=== PATIENT | female | born 1935 | race Caucasian/White ===

== ENCOUNTER 2019-11-05 13:10 | Inpatient (IN) | payer MEDICARE, SELFPAY ==
[2019-11-05] VITALS (14 sets, daily range): BP systolic 160–225; BP diastolic 97–127; PULSE 72–94; RESP 19–32; TEMP 36.3–36.8; O2SAT 88–99; BMI 13.6
--- NOTE | 2019-11-05 13:23 | DI.RAD.S_ITS ---
PROCEDURE: XR CHEST 1V INDICATIONS: suspected sepsis TECHNIQUE: One view of the chest was acquired. COMPARISON: None. FINDINGS: Surgical changes and devices: Surgical clips noted in the right axilla. Lungs and pleura: Lungs are clear. No pleural effusions or pneumothorax. Lungs are hyperinflated suggesting COPD. Mediastinum: Mediastinal contours appear normal. Heart size is normal. Bones and chest wall: No suspicious bony lesions. Overlying soft tissues appear unremarkable. IMPRESSION: No acute cardiopulmonary disease process. Dictated by: Estrella Cueva MD, PhD on 11/05/2019 at 13:03 Approved by: Estrella Cueva MD, PhD on 11/05/2019 at 13:04
[2019-11-05] MEDS: ALBUTEROL/IPRATROPIUM 3 ML AMPUL INH ×2 (13:24→17:49)
--- NOTE | 2019-11-05 13:34 | ED_ITS ---
HPI - SOB/Dyspnea General Chief Complaint: Shortness of Breath/Dyspnea Stated Complaint: Respiratory Distress Time Seen by Provider: 11/05/19 13:27 Source: EMS Mode of arrival: EMS History of Present Illness HPI Narrative: The patient is an 84-year-old female who was sent into the emergency department by ambulance by her primary care physician Dr. Hong.Dr. Hong called the emergency department to inform the emergency department that t he patient is DNI-DNR simple care comfort measures only no intubation. Place her on oxygen and breathing treatments. The patient has been living at home with help and the family can no longer take care of her. She has a an extensive history being a heavy smoker most of her life and has significant COPD. He plans to admit the patient after being evaluated in the emergency department for possible placement in a alf. The patient complains of being short of breath with a cough productive of a clear sputum. She denied any hemoptysis chest pain palpitations or dizziness. She denies any abdominal pain nausea vomiting diarrhea change in bowel habits melena or hematochezia. She has had no urinary symptoms. She denies a headache nasal drainage sinus congestion or sore throat. She denies any fever chills or sweats. She admits to continuing to smoke cigarettes. She admits to a history of asthma but denies a history of COPD congestive heart failure myocardial infarction diabetes or hypertension. Related Data Home Medications Medication Instructions Recorded Confirmed quetiapine [Seroquel] 12.5 mg PO QPM 11/05/19 11/05/19 Allergies Allergy/AdvReac Type Severity Reaction Status Date / Time amlodipine [From [facility]] Allergy Unknown Verified 11/05/19 14:40 Review of Systems Review of Systems Narrative: The patient's review of systems were negative except for those mentioned in the history of present illness. Patient History Social History household members: spouse Smoking Status: Current some day smoker alcohol intake: current Exam Narrative Exam Narrative: PHYSICAL EXAM: CONSTITUTIONAL: Awake, appears alert and oriented to place time. Cooperative in mild to moderate respiratory distress tachypneic.. The patient appears to be chronically ill cachectic and emaciated. HEAD: AT/NC EENT: PERRL, FROM of eyes, no discharge,. No epistaxis or nasal drainage Oral mucosa is moist and pink, posterior pharynx is without erythema or exudate. NECK: Supple, no obvious JVD, Trachea is midline without stridor, no palpable LN . SPINE: No gross deformity, no palpable tenderness of the cervical, thoracic, lumbar or sacral spine. No CVA tenderness. THORAX: No deformity, retractions, chest wall tenderness, increased AP diameter. LUNGS: Markedly decreased breath sounds bilaterally. She has diffuse expiratory wheezes posteriorly with inspiratory crackles HEART: Normal heart tones, regular rhythm and rate without murmur. ABDOMEN: Soft, non-tender, normal bowel sounds without guarding, rebound, rigidity or palpable mass EXTREMITIES: No edema, cyanosis, deformity or tenderness. Diffuse atrophy of the muscles. SKIN: No rash, bruising, petechiae or purpura. NEURO: Awake, alert, oriented, conversive, cranial nerves II-XII are symmetrical and normal, moves all 4 extremities Initial Vital Signs Initial Vital Signs: Vital Signs Temperature 98.1 F 11/05/19 13:23 Pulse Rate 94 H 11/05/19 13:23 Respiratory Rate 29 H 11/05/19 13:23 Blood Pressure 192/127 H 11/05/19 13:23 Pulse Oximetry 96 11/05/19 13:23 Course Course Course Narrative: 1445 I will discuss the patient with Dr. Garcia, her chest x- ray revealed no acute cardiopulmonary pathology. She has no pneumonia. It appears clinically the patient is having an acute exacerbation of her COPD. 1455 the patient was admitted to the hospital before the influenza swabs resulted. Orders Ordered: ED Orders 11/05/19 13:23 XR chest 1V Stat EKG-12 Lead Stat RT Consult Eval and Treat Now 11/05/19 13:31 Complete Blood Count AUTO DIFF Stat Comprehensive Metabolic Panel Stat Lactate (Lactic Acid) Stat Lipase Stat Partial Thromboplastin Time Stat Procalcitonin Stat Prothrombin Time INR Stat 11/05/19 13:38 Venous Blood Gas Stat 11/05/19 15:47 Blood Culture Stat Acetaminophen (Tylenol) 650 mg PO Q6HR PRN PRN Reason: Fever/Mild Pain (1-3) Albuterol (Ventolin) 2.5 mg INH [id number] PRN PRN Reason: Shortness Of Breath Albuterol (Ventolin) 2.5 mg INH [id number] YVETTE Albuterol/Ipratropium (Duoneb) 3 ml INH [id number] [facility] Last Admin: 11/05/19 17:49 Dose: 3 ml Documented by: HERBERT Sodium Chloride (Normal Saline 0.9%) 1,000 mls @ 75 mls/hr IV CONT YVETTE Last Admin: 11/05/19 18:13 Dose: 75 mls/hr Documented by: JOYCE Methylprednisolone (Solu-Medrol) 40 mg IV Q6HR [facility] Last Admin: 11/05/19 18:12 Dose: 40 mg Documented by: JOYCE Naloxone HCl (Narcan) 0.2 mg IV Q2MIN PRN PRN Reason: Opiate Reversal Quetiapine Fumarate (Seroquel) 12.5 mg PO QPM [facility] Discontinued Medications Albuterol/Ipratropium (Duoneb) 3 ml INH NOW ONE Stop: 11/05/19 13:24 Last Admin: 11/05/19 13:24 Dose: 3 ml Documented by: HERBERT Sodium Chloride (Normal Saline 0.9%) 1,000 mls @ 1,000 mls/hr IV BOLUS ONE Stop: 11/05/19 14:22 Last Admin: 11/05/19 13:54 Dose: 1,000 mls/hr Documented by: JESSICA Lisinopril (Zestril) 20 mg PO NOW ONE Stop: 11/05/19 17:49 Last Admin: 11/05/19 18:12 Dose: 20 mg Documented by: JOYCE Vital Signs Vital signs: Vital Signs - 8 hr 11/05/19 13:23 11/05/19 13:24 11/05/19 13:55 Temperature 98.1 F Pulse Rate 94 H 91 H 86 Respiratory Rate 29 H 24 30 H Blood Pressure 192/127 H Blood Pressure [Left Arm] 204/98 H Pulse Oximetry 96 98 98 11/05/19 14:30 11/05/19 15:00 Temperature Pulse Rate 87 88 Respiratory Rate 29 H 30 H Blood Pressure Blood Pressure [Left Arm] 200/97 H 204/98 H Pulse Oximetry 91 95 MDM - SOB/Dyspnea Medical Records Attestation: I reviewed the patient's medical records. Lab Data Attestation: I reviewed the patient's lab results. Result diagrams: 11/05/19 13:31 11/05/19 13:31 Labs: Lab Results 11/05/19 11/05/19 11/05/19 Range/Units 13:31 13:31 13:31 WBC 7.3 (4.5-11.0) X10^3/uL RBC 4.87 (4.0-5.2) X10^6/uL Hgb 15.3 (12.0-16.0) g/dL Hct 45.5 (36-46) % MCV 93.6 (80-100) fL MCH 31.5 (26-34) PG MCHC 33.7 (30-36) % RDW 13.7 (11.6-14.8) % Plt Count 226 (150-400) X10^3/uL Neut % (Auto) 84.0 H (50-75) % Lymph % (Auto) 8.7 L (25-40) % [place] % (Auto) 6.3 (3-14) % Eos % (Auto) 0.2 L (2-4) % Baso % (Auto) 0.8 (0-2) % Neut # (Auto) 6100 (9227-3264) /uL Lymph # (Auto) 600 L (8921-7706) /uL [place] # (Auto) 500 (0-900) /uL Eos # (Auto) 0 (0-450) /uL Baso # (Auto) 100 (0-100) /uL PT 10.6 (10.1-12.7) SECONDS INR 0.9 (0.9-1.3) APTT 26 L (26.4-36.2) SECONDS Sodium (137-145) mmol/L Potassium (3.4-5.1) mmol/L Chloride (98-107) mmol/L Carbon Dioxide (22-32) mmol/L BUN (7-17) mg/dL Creatinine (0.52-1.04) mg/dL Estimated GFR (>60) mL/min BUN/Creatinine Ratio (6-22) Glucose (80-110) mg/dL Lactate (0.7-2.1) mmol/L Calcium (8.4-10.2) mg/dL Total Bilirubin (0.2-1.3) mg/dL AST (14-36) IU/L ALT (<35) IU/L Alkaline Phosphatase (38-126) U/L Total Protein (6.3-8.2) g/dL Albumin (3.5-5.0) g/dL Globulin (1.7-4.1) g/dL Albumin/Globulin Ratio (1.0-2.8) Lipase (23-300) U/L Procalcitonin < 0.05 (<0.5) ng/mL 11/05/19 11/05/19 Range/Units 13:31 13:31 WBC (4.5-11.0) X10^3/uL RBC (4.0-5.2) X10^6/uL Hgb (12.0-16.0) g/dL Hct (36-46) % MCV (80-100) fL MCH (26-34) PG MCHC (30-36) % RDW (11.6-14.8) % Plt Count (150-400) X10^3/uL Neut % (Auto) (50-75) % Lymph % (Auto) (25-40) % [place] % (Auto) (3-14) % Eos % (Auto) (2-4) % Baso % (Auto) (0-2) % Neut # (Auto) (0742-6926) /uL Lymph # (Auto) (3477-4104) /uL [place] # (Auto) (0-900) /uL Eos # (Auto) (0-450) /uL Baso # (Auto) (0-100) /uL PT (10.1-12.7) SECONDS INR (0.9-1.3) APTT (26.4-36.2) SECONDS Sodium 138 (137-145) mmol/L Potassium 3.1 L (3.4-5.1) mmol/L Chloride 95 L (98-107) mmol/L Carbon Dioxide 36 H (22-32) mmol/L BUN 21 H (7-17) mg/dL Creatinine 0.75 (0.52-1.04) mg/dL Estimated GFR > 60.0 (>60) mL/min BUN/Creatinine Ratio 28.0 H (6-22) Glucose 148 H (80-110) mg/dL Lactate 1.6 (0.7-2.1) mmol/L Calcium 9.7 (8.4-10.2) mg/dL Total Bilirubin 0.6 (0.2-1.3) mg/dL AST 35 (14-36) IU/L ALT 17 (<35) IU/L Alkaline Phosphatase 95 (38-126) U/L Total Protein 7.3 (6.3-8.2) g/dL Albumin 4.1 (3.5-5.0) g/dL Globulin 3.2 (1.7-4.1) g/dL Albumin/Globulin Ratio 1.3 (1.0-2.8) Lipase 241 (23-300) U/L Procalcitonin (<0.5) ng/mL ECG Data Attestation: I personally reviewed and interpreted this ECG as follows: Interpretation: The patient's EKG obtained on November 04 at 13:3 6:18 a.m. reveals a sinus rhythm with a ventricular rate of 95. Intervals appear to be normal except the QTC is slightly prolonged at 477 milliseconds. The patient has left axis deviation. The patient has a QS wave in lead II III and AVF suggestive of an arm inferior wall VT age indeterminate. The patient has a noisy artifactual baseline. Patient has T-wave inversions in V1 V2 suggesting and a septal ischemia. The rest of her ST segments and T-waves are nonspecific. Discharge Plan Departure Patient Disposition: Admitted As Inpatient Clinical Impression: Shortness of Breath, Cachexia, COPD exacerbation Hypertension Qualifiers: Hypertension type: essential hypertension Qualified Code(s): I10 - Essential (primary) hypertension Discharge Date/Time: 11/05/19 16:31 Admit Date/Time: 11/05/19 15:01 Admit Provider: Nacho Hong
[2019-11-05 13:51] LABS: Add Manual Diff / Slide Review NO; Basophils Absolute Auto 100 /uL (0-100); Basophils Percent Auto 0.8 % (0-2); Eosinophils Absolute Auto 0 /uL (0-450); Eosinophils Percent Auto 0.2 % (2-4); Hematocrit 45.5 % (36-46); Hemoglobin 15.3 g/dL (12.0-16.0); Lymphocytes Absolute Auto 600 /uL (1100-4500); Lymphocytes Percent Auto 8.7 % (25-40); Mean Corpuscular HGB Conc 33.7 % (30-36); Mean Corpuscular Hemoglobin 31.5 PG (26-34); Mean Corpuscular Volume 93.6 fL (80-100); Monocytes Absolute Auto 500 /uL (0-900); Monocytes Percent Auto 6.3 % (3-14); Neutrophils Absolute Auto 6100 /uL (1500-7000); Platelet Count 226 X10^3/uL (150-400); Red Blood Cell Count 4.87 X10^6/uL (4.0-5.2); Red Cell Distribution Width 13.7 % (11.6-14.8); White Blood Cell Count 7.3 X10^3/uL (4.5-11.0)
[2019-11-05] MEDS: SODIUM CHLORIDE 0.9% 1,000 ML 1000 ML IV (13:54)
[2019-11-05 14:00] LABS: INR 0.9 (0.9-1.3); Prothrombin Time 10.6 SECONDS (10.1-12.7)
[2019-11-05 14:02] LABS: PTT Partial Thromboplastin Tim 26 SECONDS (26.4-36.2)
[2019-11-05 14:05] LABS: Lactate (Lactic Acid) 1.6 mmol/L (0.7-2.1)
[2019-11-05 14:06] LABS: Alanine Aminotransferase 17 IU/L (<35); Albumin 4.1 g/dL (3.5-5.0); Albumin Globulin Ratio 1.3 (1.0-2.8); Alkaline Phosphatase 95 U/L (38-126); Aspartate Aminotransferase 35 IU/L (14-36); Bilirubin Total 0.6 mg/dL (0.2-1.3); Blood Urea Nitrogen 21 mg/dL (7-17); Calcium 9.7 mg/dL (8.4-10.2); Carbon Dioxide 36 mmol/L (22-32); Chloride 95 mmol/L (98-107); Estimated Glomerular Filt Rate > 60.0 mL/min (>60); Globulin 3.2 g/dL (1.7-4.1); Glucose 148 mg/dL (80-110); HEMOLYSIS 18 (0-50); Lipase 241 U/L (23-300); Potassium 3.1 mmol/L (3.4-5.1); Sodium 138 mmol/L (137-145); Total Protein 7.3 g/dL (6.3-8.2)
[2019-11-05 14:23] LABS: Procalcitonin < 0.05 ng/mL (<0.5)
--- NOTE | 2019-11-05 15:43 | PC.NURSE ---
Pt attempting to climb out of bed, has d/c'd IV, removed cardiac leads, SPO2 sensor, nasal cannula. Pt assisted back into bed by RNs, O2 applied, clean gown, blood washed from hands. PT education regarding nurse call light provided.
[2019-11-05 16:13] LABS: Bacteria Urine None Seen; WBC Urine None Seen (0-5/HPF)
[2019-11-05 16:25] LABS: Culture Indicated Urine Cult Not Indicated; RBC Urine 0-1/HPF (0-5/HPF)
--- NOTE | 2019-11-05 17:20 | PC.NURSE ---
1650 - Pt to room from ER. Able to stand-pivot to bed. Unsteady gait. Oriented to room and routine. Educated to safety and call light use. One person assist to BSC. Bed alarm on. Pt is a poor historian and unable to provide information leading up to admission. No family present.
[2019-11-05] MEDS: lisinopriL 20 MG TABLET PO (18:12)
[2019-11-05] MEDS: SODIUM CHLORIDE 0.9% 1,000 ML 75 ML IV (18:13)
[2019-11-05 18:45] LABS: Adenovirus Not Detected (Not Detect); Bordetella pertussis Not Detected (Not Detect); Chlamydophila pneumoniae Not Detected (Not Detect); Coronavirus 229E Not Detected (Not Detect); Coronavirus HKU1 Not Detected (Not Detect); Coronavirus NL 63 Not Detected (Not Detect); Coronavirus OC43 Not Detected (Not Detect); Human Metapneumovirus Detected (Not Detect); Human Rhinovirus/Enterovirus Not Detected (Not Detect); Influenza A Not Detected (Not Detect); Influenza B Not Detected (Not Detect); Mycoplasma pneumoniae Not Detected (Not Detect); Parainfluenza Virus 1 Not Detected (Not Detect); Parainfluenza Virus 2 Not Detected (Not Detect); Parainfluenza Virus 3 Not Detected (Not Detect); Parainfluenza Virus 4 Not Detected (Not Detect); Respiratory Syncytial Virus Not Detected (Not Detect)
--- NOTE | 2019-11-05 19:01 | PC.NURSE ---
Addendum entered by Karrie Rojas R.N. 11/05/19 23:19: Phone call from pt's son, Austin, who states pt has dementia as baseline. Son was informed of pt's status as per request. Addendum entered by Karrie Rojas R.N. 11/05/19 21:50: Dr. Hong in house and informed of results of pt's respiratory panel. Also, informed MD of pt's confusion and restlessness requiring 1:1 to keep oxygen cannula in nares and iv intact. Verbal orders for lorazepam as per Dr. Hong. Original Note: Pt to room 214 from E.R. Pt is confused and requires repeated directions and instructions to leave oxygen cannula in place. 02 @ 4L per NC sats 92%. R.T. in to see patient. Dr. Hong has seen pt in room this evening shift. Pt placed on droplet precautions pending respiratory panel results. IV fluids as per emar to right ac iv site without difficulty. Bed alarm in place and frequent viewing by staff.
--- NOTE | 2019-11-05 22:18 | P.HP_ITS ---
History of Present Illness History of Present Illness Date Patient Seen: 11/05/19 Time Patient Seen: 22:18 Chief complaint: Respiratory Distress Narrative: Patient is a significantly demented 84-year-old female who has been reluctant to consider medical care over the last 2 years. The last time I saw her was approximately 2 or 3 months ago when I did a home visit and she was reluctant to leave the house. Really had a lot of paranoia around everybody trying to get her out of her house. Basically at the time her son was splitting time with her daughter in spending time with her to try to keep her in the house. The goal was to keep her there. She has been doing well. Apparently she has had a commercial real estate underwriter who had a a family member who was recently coming back from [place]. She had been tested twice for the doshi virus both of which time she was negative. Caretakers never been sick and not had any issues. Apparently Sue over the last 7 days is progressively got increasing cough. No fever. Generally increasing weakness and has had more and more difficulty breathing. Having difficulty get up and moving around. Has been had minimal p.o. intake. Has not had any fevers or chills. Son has had increasing issues with dealing with her and started to worry that she was going to have more more problems. So she was brought in today. No one else in the family has been sick although the commercial real estate underwriter is gotten sick since Sue he has gotten sick. Patient has had a longstanding history of smoking. And has had issues with COPD. Patient has had a cough but son is not sure if it has been productive. Patient otherwise is a very poor historian. She has not had any nausea or vomiting. She has not been complaining of any pain to her son. No urinary changes or bowel changes. Past medical history is significant for hypertension. Dementia. Refused all treatment. Past Surgical history is noncontributory and I am unable to obtain tonight. Social history. Lifelong smoker. Greater than 60 pack year history. . Retired. Lives alone with excellent family support. No alcohol. No recent travel Patient History Family & Social History Social History: household members spouse Prior Living Arrangements House Safety & Behavioral: Feels Safe in Current Yes Environment Been Physically Hurt or No Threatened By a Person Suicidal Ideation Description None Tobacco & Substance use: Tobacco type cigarettes Smoking Status Current some day smoker alcohol intake current alcohol intake frequency holiday/special occasion Substance Use Type does not use Meds Home Medications and Allergies Home Medications Medication Instructions Recorded Confirmed Type quetiapine [Seroquel] 12.5 mg PO QPM 11/05/19 11/05/19 History Allergies Allergy/AdvReac Type Severity Reaction Status Date / Time amlodipine [From [facility]] Allergy Unknown Verified 11/05/19 14:40 Review of Systems Review of Systems ROS: Yes All systems reviewed with the patient and are negative except as otherwise documented and unobtainable due to mental condition Exam Vital Signs (past 8 hours): - 11/05/19 14:30 11/05/19 15:00 11/05/19 15:30 Temperature Pulse Rate 87 88 87 Respiratory Rate 29 H 30 H 30 H Blood Pressure Blood Pressure [Left Arm] 200/97 H 204/98 H 225/106 H Pulse Oximetry 91 95 92 11/05/19 16:00 11/05/19 17:23 11/05/19 17:49 Temperature 97.4 F L Pulse Rate 92 H 88 86 Respiratory Rate 32 H 24 20 Blood Pressure 191/114 H Blood Pressure [Left Arm] 192/109 H Pulse Oximetry 94 93 88 L 11/05/19 18:00 11/05/19 18:12 11/05/19 19:42 Temperature 98.2 F Pulse Rate 88 72 Respiratory Rate 20 Blood Pressure 191/114 H 186/109 H Blood Pressure [Left Arm] Pulse Oximetry 92 95 Oxygen Delivery Method Nasal Cannula Oxygen Flow Rate 4 Narrative Exam Narrative: Alert elderly female thin in appearance sitting in bed comfortably coughing intermittently no acute respiratory distress. Nasal cannula in place. HEENT exam tympanic membranes are unremarkable. Conjunctivae are clear. Mucous membrane mildly dry. Neck is supple without adenopathy JVD or bruits lungs show diffuse expiratory rhonchi with no retractions. Heart is regular rate and rhythm without murmurs clicks rubs or gallops. Abdomen is scaphoid soft positive bowel sounds no pedis been megaly no masses. Extremities are thin good capillary refill. Neurologic exam is nonfocal. Skin shows no rash or bruising. Emotionally she is quite happy but confused and is not oriented to anything but herself Objective Labs Result Diagrams: 11/05/19 13:31 11/05/19 13:31 Labs: Laboratory Results - last 24 hr 11/05/19 11/05/19 11/05/19 13:31 13:31 13:31 WBC 7.3 RBC 4.87 Hgb 15.3 Hct 45.5 MCV 93.6 MCH 31.5 MCHC 33.7 RDW 13.7 Plt Count 226 Neut % (Auto) 84.0 H Lymph % (Auto) 8.7 L [place] % (Auto) 6.3 Eos % (Auto) 0.2 L Baso % (Auto) 0.8 Neut # (Auto) 6100 Lymph # (Auto) 600 L [place] # (Auto) 500 Eos # (Auto) 0 Baso # (Auto) 100 PT 10.6 INR 0.9 APTT 26 L Sodium Potassium Chloride Carbon Dioxide BUN Creatinine Estimated GFR BUN/Creatinine Ratio Glucose Lactate Calcium Total Bilirubin AST ALT Alkaline Phosphatase Total Protein Albumin Globulin Albumin/Globulin Ratio Lipase Procalcitonin < 0.05 Urine RBC Urine WBC Urine Bacteria Ur Culture Indicated? Chlamy pneumoniae PCR Adenovirus (PCR) B.parapertussis DNA PCR Coronavirus OC43 (PCR) Coronavirus HKU1 (PCR) Coronavirus 229E (PCR) Coronavirus NL63 (PCR) Human Metapneumovir PCR Influenza Type A (PCR) Influenza Type B (PCR) M. pneumoniae (PCR) Parainfluenza 1 (PCR) Parainfluenza 2 (PCR) Parainfluenza 3 (PCR) Parainfluenza 4 (PCR) RSV (PCR) Entero/Rhino (PCR) 11/05/19 11/05/19 11/05/19 13:31 13:31 16:01 WBC RBC Hgb Hct MCV MCH MCHC RDW Plt Count Neut % (Auto) Lymph % (Auto) [place] % (Auto) Eos % (Auto) Baso % (Auto) Neut # (Auto) Lymph # (Auto) [place] # (Auto) Eos # (Auto) Baso # (Auto) PT INR APTT Sodium 138 Potassium 3.1 L Chloride 95 L Carbon Dioxide 36 H BUN 21 H Creatinine 0.75 Estimated GFR > 60.0 BUN/Creatinine Ratio 28.0 H Glucose 148 H Lactate 1.6 Calcium 9.7 Total Bilirubin 0.6 AST 35 ALT 17 Alkaline Phosphatase 95 Total Protein 7.3 Albumin 4.1 Globulin 3.2 Albumin/Globulin Ratio 1.3 Lipase 241 Procalcitonin Urine RBC 0-1/hpf Urine WBC None seen Urine Bacteria None seen Ur Culture Indicated? Cult not indicated Chlamy pneumoniae PCR Adenovirus (PCR) B.parapertussis DNA PCR Coronavirus OC43 (PCR) Coronavirus HKU1 (PCR) Coronavirus 229E (PCR) Coronavirus NL63 (PCR) Human Metapneumovir PCR Influenza Type A (PCR) Influenza Type B (PCR) M. pneumoniae (PCR) Parainfluenza 1 (PCR) Parainfluenza 2 (PCR) Parainfluenza 3 (PCR) Parainfluenza 4 (PCR) RSV (PCR) Entero/Rhino (PCR) 11/05/19 17:25 WBC RBC Hgb Hct MCV MCH MCHC RDW Plt Count Neut % (Auto) Lymph % (Auto) [place] % (Auto) Eos % (Auto) Baso % (Auto) Neut # (Auto) Lymph # (Auto) [place] # (Auto) Eos # (Auto) Baso # (Auto) PT INR APTT Sodium Potassium Chloride Carbon Dioxide BUN Creatinine Estimated GFR BUN/Creatinine Ratio Glucose Lactate Calcium Total Bilirubin AST ALT Alkaline Phosphatase Total Protein Albumin Globulin Albumin/Globulin Ratio Lipase Procalcitonin Urine RBC Urine WBC Urine Bacteria Ur Culture Indicated? Chlamy pneumoniae PCR Not detected Adenovirus (PCR) Not detected B.parapertussis DNA PCR Not detected Coronavirus OC43 (PCR) Not detected Coronavirus HKU1 (PCR) Not detected Coronavirus 229E (PCR) Not detected Coronavirus NL63 (PCR) Not detected Human Metapneumovir PCR Detected H Influenza Type A (PCR) Not detected Influenza Type B (PCR) Not detected M. pneumoniae (PCR) Not detected Parainfluenza 1 (PCR) Not detected Parainfluenza 2 (PCR) Not detected Parainfluenza 3 (PCR) Not detected Parainfluenza 4 (PCR) Not detected RSV (PCR) Not detected Entero/Rhino (PCR) Not detected Assessment & Plan Assessment & Plan narrative: COPD exacerbation. Negative influenza did have a positive viral finding which was probably a respiratory issue but not any other concerning symptoms. Does not have fever or other issue which is significantly causing her to be concern for doshi virus nor does she have much he social contact to make this is significant risk. At this point family does not want aggressive care but will begin steroids. Proventil nebulizations. Respiratory therapy. Re-evaluate in a.m.. Infectious disease. I do not think she has got pneumonia or significant bacterial infection probably viral antibiotics prior going to make a difference will follow. Uncontrolled hypertension. Will place on lisinopril. Will see how she responds. Unclear whether this is a long-term issue or acute exacerbation secondary to the fact that she does not come into the doctor. See if we can get this stabilized. Dementia. Severe. Past the point of treatment patient has been refusing will follow. Hypokalemia will replace orally recheck a.m.. Dehydration. Gentle hydration re-evaluate in a.m.. Code status DNR. GI prophylaxis will hold. DVT prophylaxis SCDs. Disposition. Will see how things go. Need to get her blood pressure under control and her breathing better will see what Physical therapy things tomorrow and follow from there. Quality VTE Deep Vein Thrombosis/Pulmonary Embolism Present on Admission: No
[2019-11-05] MEDS: LORazepam 0.5 MG TABLET PO (22:31)
[2019-11-05] MEDS: POTASSIUM CHLORIDE 20 MEQ TAB 40 MEQ PO (22:32)
[2019-11-06] VITALS (9 sets, daily range): BP systolic 109–146; BP diastolic 67–86; PULSE 76–102; RESP 16–20; TEMP 36.2–37; O2SAT 92–100
[2019-11-06 07:17] LABS: BUN Creatinine Ratio 21.5 (6-22); Blood Urea Nitrogen 14 mg/dL (7-17); Calcium 8.8 mg/dL (8.4-10.2); Carbon Dioxide 32 mmol/L (22-32); Chloride 102 mmol/L (98-107); Estimated Glomerular Filt Rate > 60.0 mL/min (>60); Glucose 126 mg/dL (80-110); HEMOLYSIS < 15 (0-50); Potassium 4.2 mmol/L (3.4-5.1); Sodium 138 mmol/L (137-145)
[2019-11-06] MEDS: SODIUM CHLORIDE 0.9% 1,000 ML 75 ML IV (08:16)
[2019-11-06] MEDS: ALBUTEROL/IPRATROPIUM 3 ML AMPUL INH ×3 (08:41→19:08)
--- NOTE | 2019-11-06 11:31 | PT.IIE ---
Physical Therapy Inpatient Evaluation/Re-Eval M1 PT/OT-IP Prior Functional Status Start: 11/06/19 14:10 Freq: NEEDED Status: Active Protocol: Document 11/06/19 11:31 AB (Rec: 11/06/19 14:24 AB [id number]) Medical Review Prior Functional Status Medical History Reviewed No Communication able to make needs know but with confusion Mobility and Gait pt stated that she is modified independent with all mobilities and ambulation without AD Social History Household Members spouse Living Arrangements House Number of Floors (Floors) One Floor Number of Stairs To Enter/Railing? no steps to enter Home Environment Standard Height Toilet,Walk in Shower,Built-In Shower Seat Home Equipment Grab Bars Near Toilet Additional Social History Comment pt with confusion and is not sure regarding info given M2 PT-IP Current Condition Start: 11/06/19 14:10 Freq: NEEDED Status: Active Protocol: Document 11/06/19 11:31 AB (Rec: 11/06/19 14:24 AB [id number]) Physical Therapy Current Condition Current Condition Evaluation Date 11/06/19 Treatment Diagnosis COPD exac; generalized weakness Onset Date 11/05/2019 Precautions Other Precautions droplet precautions; fall precaution M3 PT-IP Subjective Start: 11/06/19 14:10 Freq: NEEDED Status: Active Protocol: Document 11/06/19 11:31 AB (Rec: 11/06/19 14:24 AB [id number]) Subjective Physical Therapy Visit Type Type Initial Evaluation Visit Start Time 11:31 Visit Stop Time 12:03 Total Visit Minutes 32 Number of ED CASE MANAGER Visits 0 Physical Therapy Visit Comments Patient Comments pt agreeable to do PT Therapy Pain Assessment Pain Present Pain Present Denied Pain M4 PT-IP Mobility and Gait Start: 11/06/19 14:10 Freq: NEEDED Status: Active Protocol: Document 11/06/19 11:31 AB (Rec: 11/06/19 14:24 AB [id number]) PT-Bed Mobility Assessment Supine to Sit Supine to Sit Standby Assistance,Head of Bed Elevated Scooting Scooting to Edge of Bed Standby Assistance PT-Transfer Assessment Sit to and From Stand Sit to and from Stand Contact Guard Assistance,1 Person Assistance,Use of Upper Extremities Equipment Transfer Assistive Device Gait Belt,Front Wheeled Walker Orthotic/Prosthetic Devices or Brace: No Transfers Transfer Destination Chair Transfer Technique Stand Step Pivot Transfer Ability Level of Assist Contact Guard Assistance,1 Person Assistance,Use of Upper Extremities Comments Mobility Comments pt completed supine to sit SBA with HOB elevated. Pt on / L O2 and O2 sat at rest 94% and decreases to 81% with activity. instructed for PLB and O2 sat increased to 90% in ~ 30 sec. pt completed sit to stand CGA and transferred to the chair using FWW CGA. pt agreed to ambulate and completed 4ft forwards and then backwards CGA and cues. O2 sat decreases to ~ 87-88%. instructed to sit down. positioned in bed. call light and table placed within reach . chair alarm on. Gait Assessment Gait Gait Assistance Required: Contact Guard Assist,1 Person Assist Distance (Feet) 8 Able to Maintain Weight Bearing Status Yes During Gait Assistive Devices Assistive Device Gait Belt,Front Wheeled Walker Orthotic/Prosthetic Devices or Brace: No Gait Deviations General Gait Pattern Decreased Stride Length, Decreased Feet Clearance,Step- to Gait Factors Limiting Gait Function Factors Limiting Gait Function Decreased Activity Tolerance, Decreased Strength,Difficulty Following Directions,Poor Balance,Poor Safety Awareness, Respiratory Distress Comments Gait Comments presents with unsteady shuffling gait. PT-Balance Assessment Sitting Balance and Reactions Static Sitting Balance Ability Good Dynamic Sitting Balance Ability Good Standing Balance and Reactions Static Standing Balance Ability Fair Dynamic Standing Balance Ability Fair Device Used FWW M5 PT-IP Objective Assessments Start: 11/06/19 14:10 Freq: NEEDED Status: Active Protocol: Document 11/06/19 11:31 AB (Rec: 11/06/19 14:24 AB [id number]) Orientation Orientation/Cognition Level of Alertness Confusional State Orientation Name Language Function Ability Hard of Hearing Safety Awareness Decreased Safety Awareness Memory Description Short Term Impaired,Category Consultant Impaired Gross Range of Motion Lower Extremity ROM Assessment Within Functional Limits Strength Lower Extremity Strength Hip 4-/5 Knee 4-/5 Muscle Tone Muscle Tone WNL No M6 PT-IP Treatment Start: 11/06/19 14:10 Freq: NEEDED Status: Active Protocol: Document 11/06/19 11:31 AB (Rec: 11/06/19 14:24 AB [id number]) Physical Therapy Treatment Education Education Provided Safety M7 PT-IP Assessment and Plan Start: 11/06/19 14:10 Freq: NEEDED Status: Active Protocol: Document 03/14/20 11:31 AB (Rec: 11/06/19 14:24 AB [id number]) PT Summary Assessment and Plan Potential Rehabilitation Potential Fair Status of Condition at Evaluation Evolving Summary Impairments Strength,Balance,Coordination, Cognition,Bed Mobility, Transfers,Gait,Activity Tolerance Assessment Summary pt requiring CGA with mobility but has decrease activity tolerance with decrease in O2 sat with mobility to 81%. pt need to be able to tolerate more activity to be safe at home. pt will require SNF rehab at this time for generalized strengthening and improve functional independence. Goals Bed Mobility Goal Independent Transfer Goal Independent,Front Wheeled Walker Gait Goal Independent,Front Wheel Walker Gait Distance 100 Days to Meet Goals 5 Frequency of Treatment Frequency Of Treatment Once a Day Treatment Plan Physical Therapy Treatment Plan Bed Mobility Training,Transfer Training,Gait Training, Therapeutic Exercise,Balance Retraining,Discharge Planning, Hot or Cold Pack,Neuromuscular Re-ed,Coordination Retraining ,Manual Therapy Other Recommendations and Next Treatment ambulation Focus Recommendations To Nursing Amount of Assist Needed 1 Person Assist Discharge Recommendations PT Discharge Recommendations SNF Rehab Equipment Needed for Home Before FWW Discharge Transportation Needs at Discharge Wheelchair/Cabulance
--- NOTE | 2019-11-06 12:42 | DI.RAD.S_ITS ---
PROCEDURE: XR CHEST 2V INDICATIONS: change in breathing TECHNIQUE: 2 views of the chest were acquired. COMPARISON: [facility], , XR CHEST 1V, 11/05/2019, 13:43. 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 Lungs and pleura: Lungs are clear. No pleural effusions or pneumothorax. The lungs are hyperexpanded, with flattening of the hemidiaphragms seen. Mediastinum: The cardiac contours are within normal limits. The aorta demonstrates calcification and tortuosity. Bones and chest wall: No suspicious bony abnormalities. Chronic appearing lower thoracic anterior wedge deformities are seen. Age-appropriate bony degenerative changes are seen. Soft tissues appear unremarkable. IMPRESSION: Hyperexpanded lungs, without an acute cardiopulmonary process identified. Postoperative and degenerative changes are seen. Dictated by: Sharath Stern M.D. on 11/06/2019 at 14:43 Approved by: Sharath Stern M.D. on 11/06/2019 at 14:44
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
--- NOTE | 2019-11-06 13:02 | CM.DANOTE ---
Addendum entered by Deisy Hart R.N. 11/06/19 15:19: Patient is inpatient status as of today, which could make her eligible for residential. Austin, patient's son, called back. He had already been here seeing patient. He mentioned that she does live alone, but has caregivers that come in from 2:00pm until 6:00pm, and they help with dinner. Son lives nearby, and comes after dinner to sit with patient, and comes in the morning as well. He stated, before she got sick, she has been independent, doesn't use a walker, and has been even doing her own vacuuming. Let son know that patient could benefit from residential, if she continues to stay weak. Mentioned home health as well. Asked son if he had any preferences, should patient need residential, and he stated, I don't know, I haven't even thought of it. Offered to meet with son tomorrow to discuss options, and he will call this office workforce planner tomorrow when he is here. Original Note: DCP: Case received, EMR reviewed and checked on patient. Patient has dementia, and was sleeping. Attempted to reach son, Austin, left him a message to call back. Was able to speak to Dr. Hong and obtain information regarding her baseline cognition, activity, and living situation. Dr. Hong has been making house visits to see patient. DCP assessment completed based on information received. Patient is an 84 year old female who admitted yesterday afternoon to the care of the hospitalist team. PCP:Dr. Hong/TYESHA Alejo. Payer: confirmed: Medicare. Patient came to the hospital via ambulance secondary to respiratory distress. She has history of COPD, and dementia. Patient holds diagnosis of metapneumoviris, and is needing oxygen. According to Dr. Hong, patient has not been on home oxygen. According to Dr. Hong, patient is not smoking, because she forgets to. He also mentioned that patient has degressed in her activity level, and does not leave the home due to her dementia worsening. Stated that she does have a caregiver in the home, and son has been staying with her, but no other information is available. Have a call out to Austin vallejo. Asked Dr. Hong about hospice, and he mentioned, does not think that she is there yet. Can ask about palliative consult, as well. P: Patient is under OBS at this time, and is being reviewed by UR. Had Dr. Hong sign a face to face, to initiate home health upon discharge. He is anticipating that patient will be here for another couple of days due to the virus, and need for oxygen. Will also look at P.T. notes. Deisy Hart RN/Cms Expert
--- NOTE | 2019-11-06 14:17 | PC.NURSE ---
Patient calm and cooperative this shift, although remains with confusion/cognitive impairment at baseline from her dementia. Denies shortness of breath, attempting to wean from 4L oxygen per MD order to titrate to keep spo2 >91%. Continuous pulse ox in use, currently 95% on 2.5L. continue to follow. Plan for CXR today as ordered.
[2019-11-06] MEDS: QUETIAPINE 25 MG TABLET 12.5 MG PO (17:36)
--- NOTE | 2019-11-06 19:00 | PC.NURSE ---
Evening Shift Note- Patient alert and oriented x2 with history of dementia. Patient impulsive. chair and bed alarms in use for safety. No complaints of pain or discomfort. Ho complaints of N/V. O2/NC/2l in place. Patient often takes of O2. Safety measures in place. call garcia withibn reach. will cotinue to monitor.
[2019-11-06] MEDS: LORazepam 0.5 MG TABLET PO (20:31)
[2019-11-07] VITALS (14 sets, daily range): BP systolic 112–147; BP diastolic 51–95; PULSE 84–106; RESP 16–22; TEMP 36.2–37.1; O2SAT 87–97
[2019-11-07 05:57] LABS: BUN Creatinine Ratio 29.8 (6-22); Blood Urea Nitrogen 25 mg/dL (7-17); Calcium 9.3 mg/dL (8.4-10.2); Carbon Dioxide 35 mmol/L (22-32); Chloride 100 mmol/L (98-107); Estimated Glomerular Filt Rate > 60.0 mL/min (>60); Glucose 105 mg/dL (80-110); HEMOLYSIS < 15 (0-50); Potassium 3.9 mmol/L (3.4-5.1); Sodium 133 mmol/L (137-145)
[2019-11-07] MEDS: ALBUTEROL/IPRATROPIUM 3 ML AMPUL INH ×3 (07:16→19:45)
--- NOTE | 2019-11-07 07:41 | PC.NURSE ---
Patient pleasant and cooperative this morning, remains pleasantly confused. Sitting up in bed, denies complaints. RT in to give treatment. Patient dipped to 88% on RA per RT and placed back on 2L NC. BEd alarm on for safety. Call light within reach. Patient would like to sleep for longer this morning.
[2019-11-07] MEDS: lisinopriL 5 MG TABLET PO (08:12)
--- NOTE | 2019-11-07 12:04 | CM.DPC ---
Addendum entered by Deisy Hart R.N. 11/07/19 14:28: Sabra from [facility] called. She stated that she will review this tomorrow with administration, for patient is on droplet precaution and may need private room. Continue to follow up with [facility], and son with other options. Original Note: DCP Cont: Had a conference with patient's son, Austin, , and Dr. Garcia also entered the waiting room. Discussed short term versus equipment operator intermodal yard planning and goals of care. Patient is not at baseline, and weaker since she has been ill. Family have been planning jail goals of care, and have been looking at facilities. Have looked at [facility], and [facility]. They do not want patient to go to [facility]. Discussed retirement rehab as option for short term, until she can get stronger to get home. Dr. Hong stated to family, it's not certain that she will retain to get stronger, but she can at least do some therapy under the guidance of the team. Family is aware that they either need to look into 24 hour caregivers, or assisted livings. For now, can pursue retirement. Went over Medicare Choice List, and family stated that they would like to start with [facility], since it's local. Have encouraged them to make a second choice, for it's not guaranteed that they can accept her, and may not be able to admit until at least Friday. Provided them with list, and phone number for care management office. Spoke to January at [facility]. Stated that they may not have any availabilities until , for they are anticipating a discharge on Friday pm. Stated that they will not have any male beds for over a week. She will review this patient. P: DCP to continue to follow. May need to follow up with son to see if he has made a second choice of facilities. He is reviewing. Deisy Hart RN/Hoof And Shoe Inspector
--- NOTE | 2019-11-07 12:16 | P.PN_ITS ---
Subjective Subjective Date Patient Seen: 11/07/19 Time Patient Seen: 12:16 Interval history: Patient seems quite happy today she is feeling fine. Has no complaints or problems. No chest pain. No shortness of breath. Exam Vital Signs (past 8 hours): - 11/07/19 07:33 11/07/19 07:36 11/07/19 08:00 Pulse Rate 92 H Respiratory Rate 18 20 Blood Pressure Pulse Oximetry 91 92 94 11/07/19 08:12 Pulse Rate 84 Respiratory Rate Blood Pressure 134/82 Pulse Oximetry Oxygen Delivery Method Nasal Cannula Oxygen Flow Rate 2 Narrative Exam Narrative: Alert female interactive but confused in mild respiratory distress after having just worked with physical therapy. Mucous membranes moist. Neck is supple without adenopathy lungs are with occasional rhonchi but otherwise much improved. No retractions. Heart is regular rate and rhythm abdomen is soft positive bowel sounds scaphoid extremities are without cyanosis clubbing edema. Neurologic exam is unremarkable she is alert and seems to be happy Objective Labs Result Diagrams: 11/05/19 13:31 11/07/19 05:25 Labs: Laboratory Results - last 24 hr 11/07/19 05:25 Sodium 133 L Potassium 3.9 Chloride 100 Carbon Dioxide 35 H BUN 25 H Creatinine 0.84 Estimated GFR > 60.0 BUN/Creatinine Ratio 29.8 H Glucose 105 Calcium 9.3 Assessment & Plan Assessment & Plan narrative: COPD exacerbation. Continue think this is secondary to her virus that she obtained. Actually improved today with down to 2 L of oxygen. Which is significantly improved from yesterday. She still is moderately out of breath. No other significant change or complaint. Feel better about her recovery now. Will continue IV steroids today consider switch to p.o. tomorrow and re-evaluate at that time. Generalized weakness. I think this is a combination of her mental status and her COPD exacerbation I think she is prior walking on the edge I do not think this is stroke or other abnormalities but at this point we will continue physical therapy. Probably will need skilled nursing before she goes home. Hypertension. Blood pressure looks good. No other changes. Will continue at 5 mg of lisinopril. Dementia as severe in stage no other changes. Hypokalemia. Was stable recheck in a.m.. No replacement at this time. Dehydration. I think she is back to euvolemic. Will see how things go. Follow but discontinue fluids at this time. Code status continue DNR GI prophylaxis. I think were stable off of medicines. DVT prophylaxis SCDs but need to be careful. Disposition. Discussed with family we had a long discussion about options. I think goal is to go home their goal I do not think we can go straight from hospital in a home I think should be too weak whether not sure it contain that strength and get back to where she was I am not sure. Will have to see. May need to increase care at home. Or look for long-term care but will know over the next couple weeks. Anticipate discharge to [facility] later this week. They understand questions were answered Quality VTE Deep Vein Thrombosis/Pulmonary Embolism Present on Admission: No
--- NOTE | 2019-11-07 13:30 | PT.IPTN ---
Physical Therapy Treatment Note M2 PT-IP Current Condition Start: 11/06/19 14:10 Freq: NEEDED Status: Active Protocol: Document 11/06/19 11:31 AB (Rec: 11/06/19 14:24 AB [id number]) Physical Therapy Current Condition Current Condition Evaluation Date 11/06/19 Treatment Diagnosis COPD exac; generalized weakness Onset Date 11/05/2019 Precautions Other Precautions droplet precautions; fall precaution M3 PT-IP Subjective Start: 11/06/19 14:10 Freq: NEEDED Status: Active Protocol: Document 11/07/19 13:17 AW (Rec: 11/07/19 13:29 AW [id number]) Subjective Physical Therapy Visit Type Type Treatment Note Visit Start Time 10:55 Visit Stop Time 11:16 Total Visit Minutes 21 Number of LOTTERIES AGENT Visits 0 Physical Therapy Visit Comments Patient Comments Pt sitting up in chair, willing to work with PT Therapy Pain Assessment Pain Present Pain Present Denied Pain M4 PT-IP Mobility and Gait Start: 11/06/19 14:10 Freq: NEEDED Status: Active Protocol: Document 11/07/19 13:17 AW (Rec: 11/07/19 13:29 AW [id number]) PT-Transfer Assessment Sit to and From Stand Sit to and from Stand Contact Guard Assistance,1 Person Assistance,Use of Upper Extremities Equipment Transfer Assistive Device Gait Belt,Front Wheeled Walker Orthotic/Prosthetic Devices or Brace: No Transfers Transfer Destination Chair Transfer Technique pt ambulated with FWW Transfer Ability Level of Assist Contact Guard Assistance,1 Person Assistance,Use of Upper Extremities Comments Mobility Comments Pt on 2L/min O2 upon PT arrival with SpO2 at 91% at rest. She was sitting in the chair, but expressed interest in getting up to the sink. She stood using FWW CGA and ambulated slowly 5 feet toward the sink requiring 2 rest breaks during which pt leaned her forearms on the walker frame to concentrate on her breathing. Once at the sink, she leaned her forearms on the counter and used a washcloth to clean her face. She was then able to support herself with one hand on the counter while she combed her hair, requiring CGA at all times for steadiness. She then ambulated 5 feet back toward the chair with FWW CGA to min assist for balance, requiring one more standing rest break. Pt's SpO2 was low 80's during activity on 2L/min. She was repositioned in the chair with call light and all needs within reach, chair alarm armed for safety. Gait Assessment Gait Gait Assistance Required: Contact Guard Assist,Minimum Assistance,1 Person Assist Distance (Feet) 5 Able to Maintain Weight Bearing Status Yes During Gait Assistive Devices Assistive Device Gait Belt,Front Wheeled Walker Orthotic/Prosthetic Devices or Brace: No Gait Deviations General Gait Pattern Decreased Stride Length, Decreased Feet Clearance,Step- to Gait Factors Limiting Gait Function Factors Limiting Gait Function Decreased Activity Tolerance, Decreased Strength,Difficulty Following Directions,Poor Balance,Poor Safety Awareness, Respiratory Distress Comments Gait Comments See mobility comments for details M5 PT-IP Objective Assessments Start: 11/06/19 14:10 Freq: NEEDED Status: Active Protocol: Document 11/06/19 11:31 AB (Rec: 11/06/19 14:24 AB [id number]) Orientation Orientation/Cognition Level of Alertness Confusional State Orientation Name Language Function Ability Hard of Hearing Safety Awareness Decreased Safety Awareness Memory Description Short Term Impaired,Usability Engineer Impaired Gross Range of Motion Lower Extremity ROM Assessment Within Functional Limits Strength Lower Extremity Strength Hip 4-/5 Knee 4-/5 Muscle Tone Muscle Tone WNL No M6 PT-IP Treatment Start: 11/06/19 14:10 Freq: NEEDED Status: Active Protocol: Document 11/07/19 13:17 AW (Rec: 11/07/19 13:29 AW [id number]) Physical Therapy Treatment Education Education Provided Safety M7 PT-IP Assessment and Plan Start: 11/06/19 14:10 Freq: NEEDED Status: Active Protocol: Document 11/07/19 13:17 AW (Rec: 11/07/19 13:29 AW [id number]) PT Summary Assessment and Plan Summary Impairments Strength,Balance,Coordination, Cognition,Bed Mobility, Transfers,Gait,Activity Tolerance Progress Towards Goals Slow Progress due to Activity Tolerance Assessment Summary Pt required CGA to min assist for transfers and ambulation with SpO2 dropping to 80% during activity. Pt remains unsafe for discharge to home setting at this time and will required SNF rehab to address weakness and to improve functional independence. Goals Bed Mobility Goal Independent Transfer Goal Independent,Front Wheeled Walker Gait Goal Independent,Front Wheel Walker Gait Distance 100 Days to Meet Goals 6 Frequency of Treatment Frequency Of Treatment Once a Day Treatment Plan Physical Therapy Treatment Plan Bed Mobility Training,Transfer Training,Gait Training, Therapeutic Exercise,Balance Retraining,Discharge Planning, Hot or Cold Pack,Neuromuscular Re-ed,Coordination Retraining ,Manual Therapy Other Recommendations and Next Treatment ambulation Focus Recommendations To Nursing Amount of Assist Needed 1 Person Assist Discharge Recommendations PT Discharge Recommendations SNF Rehab Transportation Needs at Discharge Wheelchair/Cabulance
[2019-11-07] MEDS: QUETIAPINE 25 MG TABLET 12.5 MG PO (17:45)
[2019-11-07] MEDS: SODIUM CHLORIDE 0.9% FLUSH 10 ML IV (17:45)
[2019-11-08] VITALS (10 sets, daily range): BP systolic 110–161; BP diastolic 69–109; PULSE 88–119; RESP 18–24; TEMP 36.3–37.4; O2SAT 87–93
[2019-11-08] MEDS: SODIUM CHLORIDE 0.9% FLUSH 10 ML IV ×4 (00:05→20:17)
--- NOTE | 2019-11-08 00:24 | PC.NURSE ---
Addendum entered by Richelle New R.N. 11/08/19 02:29: After being up to BSC O2 sat at 88% so increased oxygen to 1.5L/min and sat now at rest is 93% Original Note: Patient is alert but oriented only to self and birthdate. Breath sounds diminished throughout; on oxygen at 2L/min per NC with sat of 97% so decreased to 1L/min. HRR with elevated BP of 147/79. Denies nausea. BT hypoactive; unknown when last BM was. Voiding on BSC; urine is cloudy, light tim. Denies dysuria, frequency or urgency with urination. Is able to move self in bed. Due to LE weakness is assisted to BSC with walker and 1 assist; has difficulty with walker but able to use with cueing. Bruising on bilateral UE noted. Skin on lateral left ankle is calloused and dry and has a dry lesion on right anterior LE. Denies pain. Refuses to wear SCD's. Fall risk score is high and bed alarm is activated. On contact/droplet precautions due to being positive for metapneumovirus.
[2019-11-08 06:46] LABS: Add Manual Diff / Slide Review NO; Basophils Absolute Auto 0 /uL (0-100); Basophils Percent Auto 0.2 % (0-2); Eosinophils Absolute Auto 0 /uL (0-450); Eosinophils Percent Auto 0.1 % (2-4); Hematocrit 40.5 % (36-46); Hemoglobin 13.4 g/dL (12.0-16.0); Lymphocytes Absolute Auto 300 /uL (1100-4500); Mean Corpuscular HGB Conc 33.1 % (30-36); Mean Corpuscular Volume 93.8 fL (80-100); Monocytes Absolute Auto 100 /uL (0-900); Neutrophils Absolute Auto 9200 /uL (1500-7000); Neutrophils Percent Auto 95.7 % (50-75); Platelet Count 227 X10^3/uL (150-400); Red Blood Cell Count 4.32 X10^6/uL (4.0-5.2); Red Cell Distribution Width 13.4 % (11.6-14.8); White Blood Cell Count 9.6 X10^3/uL (4.5-11.0)
[2019-11-08 06:53] LABS: BUN Creatinine Ratio 34.2 (6-22); Blood Urea Nitrogen 26 mg/dL (7-17); Calcium 9.1 mg/dL (8.4-10.2); Carbon Dioxide 33 mmol/L (22-32); Chloride 99 mmol/L (98-107); Estimated Glomerular Filt Rate > 60.0 mL/min (>60); Glucose 142 mg/dL (80-110); HEMOLYSIS < 15 (0-50); Potassium 4.4 mmol/L (3.4-5.1); Sodium 134 mmol/L (137-145)
[2019-11-08] MEDS: lisinopriL 5 MG TABLET PO (08:40)
[2019-11-08] MEDS: ALBUTEROL/IPRATROPIUM 3 ML AMPUL INH ×3 (08:44→20:17)
--- NOTE | 2019-11-08 11:46 | CM.DPC ---
Addendum entered by NNAMDI Tapia 11/08/19 16:18: ADD: JEAN PAUL called [facility] to follow up on their review and they have declined to accept pt. [facility] not contracted with [facility]. JEAN PAUL called [facility] and confirmed they are contracted with [facility] and currently have female beds but state they are screening pt closely but willing to review. JEAN PAUL faxed clinicals to [facility] at [phone] and to follow with them tomorrow if they can accept and begin auth. BF Addendum entered by NNAMDI Tapia 11/08/19 13:05: ADD: JEAN PAUL spoke to [facility] admissions January and she is aware that pt's son's preference is their facility at d/c if they have available open beds. January was reviewing and alerted JEAN PAUL that pt is now showing as [facility] for insurance and would need auth (pt's facesheet initially showed straight [employer] for insurance). January states she cannot begin auth at this time as they are uncertain if they will have openings. JEAN PAUL called [facility] to confirm they received referral and alerted them to the need for SNF auth from [facility]. [facility] just beginning to review and had initial concerns about d/c plan for pt after SNF and updated them that pt currently had caregivers in the home from [phone] and son looking into [facility]. [facility] will continue review and call JEAN PAUL back today. BF Original Note: DCP SNF Planning: Per MD, he will be rounding on the pt around lunch time today when son bedside and aware and recommending SNF at d/c prior to return home or to new plan of LTC. Pt with dementia at baseline and on precautions for viral human metapneumonovirus and has previously tested negative for Coronavirus prior to this admit to the hospital. JEAN PAUL called pt's son Austin and updated him that his SNF preference of [facility] is still full and uncertain when they will have bed availability. Discussed need to have back up SNF preference in case [facility] cannot accept pt at d/c and that if pt is stable she could likely d/c by tomorrow. Austin states his SNF preference would be 1)[facility] 2) [facility] and agreeable with SW making referral to [facility]. Son inquired about transport to SNF and SW updated him that per PT today pt would be safe to d/c via cabulance and that local [facility] SNF's would provide the cabulance transport at d/c and he is appreciative. SW updated that MD will be bedside around noon today and son states he will head into the hospital to be bedside with pt when MD rounds. SW faxed referral to [facility] and called [facility] to request review for possible d/c tomorrow if pt stable. PASRR completed in anticipation of possible d/c to SNF tomorrow. Plan: SW to follow for [facility] review to determine if they can accept if [facility] is full at time of discharge. NNAMDI Tapia
--- NOTE | 2019-11-08 12:48 | PT.IPTN ---
Current Diagnoses Chronic obstructive pulmonary disease with (acute) exacerbation (11/06/19) Physical Therapy Treatment Note M2 PT-IP Current Condition Start: 11/06/19 14:10 Freq: NEEDED Status: Active Protocol: Document 11/06/19 11:31 AB (Rec: 11/06/19 14:24 AB [id number]) Physical Therapy Current Condition Current Condition Evaluation Date 11/06/19 Treatment Diagnosis COPD exac; generalized weakness Onset Date 11/05/2019 Precautions Other Precautions droplet precautions; fall precaution M3 PT-IP Subjective Start: 11/06/19 14:10 Freq: NEEDED Status: Active Protocol: Document 11/08/19 12:14 LJ (Rec: 11/08/19 12:48 LJ [email or web address]) Subjective Physical Therapy Visit Type Type Treatment Note Visit Start Time 12:14 Visit Stop Time 12:32 Total Visit Minutes 18 Number of TIE IN HAND Visits 1 Physical Therapy Visit Comments Patient Comments Pt in bed visiting with relative. Willing to get out of bed and attempt walking in room Therapy Pain Assessment Pain Present Pain Present Denied Pain M4 PT-IP Mobility and Gait Start: 11/06/19 14:10 Freq: NEEDED Status: Active Protocol: Document 11/08/19 12:14 LJ (Rec: 11/08/19 12:48 LJ [id number]) PT-Bed Mobility Assessment Supine to Sit Supine to Sit Standby Assistance,Head of Bed Elevated Scooting Scooting to Edge of Bed Standby Assistance PT-Transfer Assessment Sit to and From Stand Sit to and from Stand Contact Guard Assistance,1 Person Assistance,Use of Upper Extremities Equipment Transfer Assistive Device Gait Belt,Front Wheeled Walker Orthotic/Prosthetic Devices or Brace: No Transfers Transfer Destination Chair Transfer Technique pt ambulated with FWW Transfer Ability Level of Assist Contact Guard Assistance,1 Person Assistance,Use of Upper Extremities Comments Mobility Comments Pt is SBA to CGA for bed mobility and transfers. Pt denied dizziness or SOB with movement. O2 at 91% with mobility. Gait Assessment Gait Gait Assistance Required: Contact Guard Assist,Minimum Assistance,1 Person Assist Distance (Feet) 30 Able to Maintain Weight Bearing Status Yes During Gait Assistive Devices Assistive Device Gait Belt,Front Wheeled Walker Orthotic/Prosthetic Devices or Brace: No Gait Deviations General Gait Pattern Decreased Stride Length, Decreased Feet Clearance,Step- to Gait Factors Limiting Gait Function Factors Limiting Gait Function Decreased Activity Tolerance, Decreased Strength,Difficulty Following Directions,Poor Balance,Poor Safety Awareness, Respiratory Distress Comments Gait Comments Pt ambulated around the bed using FWW and assist for O2 line. She did not require rest breaks and denied SOB. Returned to left side of bed and sat in chair. M5 PT-IP Objective Assessments Start: 11/06/19 14:10 Freq: NEEDED Status: Active Protocol: Document 11/06/19 11:31 AB (Rec: 11/06/19 14:24 AB [id number]) Orientation Orientation/Cognition Level of Alertness Confusional State Orientation Name Language Function Ability Hard of Hearing Safety Awareness Decreased Safety Awareness Memory Description Short Term Impaired,Correction Impaired Gross Range of Motion Lower Extremity ROM Assessment Within Functional Limits Strength Lower Extremity Strength Hip 4-/5 Knee 4-/5 Muscle Tone Muscle Tone WNL No M6 PT-IP Treatment Start: 11/06/19 14:10 Freq: NEEDED Status: Active Protocol: Document 11/08/19 12:14 LJ (Rec: 11/08/19 12:48 LJ [email or web address]) Physical Therapy Treatment Education Education Provided Safety Other Treatments Other Treatment Performed standing marching prior to gait training M7 PT-IP Assessment and Plan Start: 11/06/19 14:10 Freq: NEEDED Status: Active Protocol: Document 11/08/19 12:14 LJ (Rec: 11/08/19 12:48 LJ [id number]) PT Summary Assessment and Plan Summary Impairments Strength,Balance,Coordination, Cognition,Bed Mobility, Transfers,Gait,Activity Tolerance Progress Towards Goals Slow Progress due to Activity Tolerance Assessment Summary Pt increased her gait distance and activity tolerance today. O2 remained in upper 80s to 91% during and after gait training with pursed lip breathing. Pt will require SNF rehab to improve activity tolerance and functional mobility. Goals Bed Mobility Goal Independent Transfer Goal Independent,Front Wheeled Walker Gait Goal Independent,Front Wheel Walker Gait Distance 100 Days to Meet Goals 6 Frequency of Treatment Frequency Of Treatment Once a Day Treatment Plan Physical Therapy Treatment Plan Bed Mobility Training,Transfer Training,Gait Training, Therapeutic Exercise,Balance Retraining,Discharge Planning, Hot or Cold Pack,Neuromuscular Re-ed,Coordination Retraining ,Manual Therapy Recommendations To Nursing Amount of Assist Needed 1 Person Assist Discharge Recommendations PT Discharge Recommendations SNF Rehab Transportation Needs at Discharge Wheelchair/Cabulance
--- NOTE | 2019-11-08 13:28 | P.PN_ITS ---
Subjective Subjective Date Patient Seen: 11/08/19 Time Patient Seen: 13:28 Interval history: COPD exacerbation. Continue to be clear viral. Continues to improve. Down to 1 L. Would like to continue IV steroids 1 more day then was switched to p.o.. Otherwise she seems to be doing well. No change. Generalized weakness. Strength was better today. Maybe 0 to go home. Will have to see. Decision will be made on discharge day on Friday. Continue physical therapy. Hypertension. Doing well on lisinopril 5 mg q.day. Dementia is severe in stage. Hypokalemia stable Code status DNR. Disposition. Unclear at this time. May consider to be 0 to go home will see how things go. Probably would be safer for her with the current viral issues. Will see how tomorrow goes in discussed with son. Will continue possible sniff placement and procedure. Exam Vital Signs (past 8 hours): - 11/08/19 06:10 11/08/19 08:30 11/08/19 08:45 Temperature 97.3 F L Pulse Rate 88 98 H Respiratory Rate 18 20 Blood Pressure 142/109 H Pulse Oximetry 93 93 90 L 11/08/19 08:50 11/08/19 08:58 Temperature Pulse Rate Respiratory Rate Blood Pressure Pulse Oximetry 93 90 L Oxygen Delivery Method Room Air Oxygen Flow Rate 1 Objective Labs Result Diagrams: 11/08/19 06:35 11/08/19 06:35 Labs: Laboratory Results - last 24 hr 11/08/19 11/08/19 06:35 06:35 WBC 9.6 RBC 4.32 Hgb 13.4 Hct 40.5 MCV 93.8 MCH 31.0 MCHC 33.1 RDW 13.4 Plt Count 227 Neut % (Auto) 95.7 H Lymph % (Auto) 3.0 L [place] % (Auto) 1.0 L Eos % (Auto) 0.1 L Baso % (Auto) 0.2 Neut # (Auto) 9200 H Lymph # (Auto) 300 L [place] # (Auto) 100 Eos # (Auto) 0 Baso # (Auto) 0 Sodium 134 L Potassium 4.4 Chloride 99 Carbon Dioxide 33 H BUN 26 H Creatinine 0.76 Estimated GFR > 60.0 BUN/Creatinine Ratio 34.2 H Glucose 142 H Calcium 9.1 Quality VTE Deep Vein Thrombosis/Pulmonary Embolism Present on Admission: No
--- NOTE | 2019-11-08 13:35 | DIET.PN ---
Dietary Progress Note Assessment: Ms. Zaragoza is an 84 yof with COPD exacerbation assessed at high risk r/t weight loss, decreased appetite. Pt with elevated blood glucose and low PO's. HT: 62 WT: 74lb BMI: 14.1 Labs: Gluc: 105-148 MNA: 7 (malnourished) Bob: 16 Nutrition Diagnosis: Chronic severe protein calorie malnutrition r/t altered mental status, little or no interest in consuming sufficient energy aeb energy intake <50% EER > 1mo, BMI <16, NFPE severe subcutaneous fat loss, muscle wasting. Interventions: 1. ONS ensure enlive with meals Diet Order: General EER: 1200 bran @35cal/kg; 51 g pro @ 1.5g/kg Monitoring/Evaluations: weight, PO's, ONS acceptance.
--- NOTE | 2019-11-08 18:03 | PC.NURSE ---
Addendum entered by Ira Garcia R.N. 11/08/19 21:50: Pt resting quietly at this time. Some increased confusion as evening progressed. Assisted to BSC w/o incidence. Call light w/in reach, bed alarm on for pt safety. Continue w/plan of care. Original Note: Pt sitting in chair for dinner. Pt alert to self/ age HL right wrist area intact. Call light w/in reach/ chair alarm in place for pt safety.
[2019-11-08] MEDS: QUETIAPINE 25 MG TABLET 12.5 MG PO (18:15)
[2019-11-09] VITALS (14 sets, daily range): BP systolic 106–160; BP diastolic 60–85; PULSE 76–117; RESP 16–20; TEMP 36.6–37.5; O2SAT 84–98
--- NOTE | 2019-11-09 06:38 | PC.NURSE ---
Toileted patient to BSC this morning on room air to trial her and upon returning to bed she was at 84% on RA with rest; placed on 1L NC and oxygen sats came up to 92%
[2019-11-09] MEDS: ALBUTEROL/IPRATROPIUM 3 ML AMPUL INH ×3 (08:19→18:23)
[2019-11-09] MEDS: lisinopriL 5 MG TABLET PO (08:38)
[2019-11-09] MEDS: SODIUM CHLORIDE 0.9% FLUSH 10 ML IV ×2 (08:38→21:08)
[2019-11-09] MEDS: ALBUTEROL 2.5 MG/3 ML NEB (ADULT) INH (11:35)
--- NOTE | 2019-11-09 11:52 | CM.DPC ---
Addendum entered by Magda Kelley LPN 11/09/19 14:15: Dr. Hong was here about 1330 at same time that pt's son Austin called this dcplanner back. Both were updated re the d/c issues and options noted below. Austin is now considering how he might bring in more caregiver staff. He uses private caregivers and says it was hard for his mother to get used to that. He is not sure how she will do with other caregivers in the home. HH is discussed. Dr. Hong plans to call Austin later this evening after clinic to discuss this further and including consideration of a Hospice info visit. DCP team will be following closely. Addendum entered by Magda Kelley LPN 11/09/19 14:08: Maryan has called back. [facility] is contracted with [facility] Med Adv. Because of the respiratory symptoms pt has their facility will only look at pt's for acceptance if the pt has been ruled out Covid 19. Addendum entered by Magda Kelley LPN 11/09/19 13:59: Only snf still left in [facility] that has not been given a referral is [facility] ([facility] is not contracted). Have a call in now to admissions line to see if this is a possibility. Addendum entered by Magda Kelley LPN 11/09/19 12:25: DNS at [facility] just left a vm: She is declining acceptance of this referral as they want to protect their residents for any new admissions that have respiratory issues and decision made out of abundance of caution. Original Note: DCP: continued: Case received, EMR reviewed. Confirmed pt is still on droplet precautions: + human metapneumovirus. See that plan is for snf rehab/recovery but that Dr. Hong has also discussed option of home setting with increased care as this may be a much safer overall option. Have attempted x 2 to contact pt's son by phone: home number is only one available, in order to discuss this. SNF update: /January confirms they are still full with no female beds now expected until maybe next week. [facility] declines to accept the referral. [facility]: have called, been told the DNS is still reviewing and may not have an answer today. [facility] Med Advantage plan will need to give the snf an auth for the stay. Pt continues on o2 today. Dr. Hong may be here over the clinic lunch hour...will look for him to provide further clarity on the plan and continue to try to contact pt's son (Wilbur [phone]).
--- NOTE | 2019-11-09 13:06 | PT.IPTN ---
Current Diagnoses Chronic obstructive pulmonary disease with (acute) exacerbation (11/06/19) Physical Therapy Treatment Note M2 PT-IP Current Condition Start: 11/06/19 14:10 Freq: NEEDED Status: Active Protocol: Document 11/06/19 11:31 AB (Rec: 11/06/19 14:24 AB [id number]) Physical Therapy Current Condition Current Condition Evaluation Date 11/06/19 Treatment Diagnosis COPD exac; generalized weakness Onset Date 11/05/2019 Precautions Other Precautions droplet precautions; fall precaution M3 PT-IP Subjective Start: 11/06/19 14:10 Freq: NEEDED Status: Active Protocol: Document 11/09/19 14:04 CLB (Rec: 11/09/19 14:21 CLB [id number]) Subjective Physical Therapy Visit Type Type Treatment Note Visit Start Time 13:06 Visit Stop Time 13:34 Total Visit Minutes 28 Number of CASING WORKER Visits 2 Physical Therapy Visit Comments Patient Comments Pt in bed willing to get up for ambulation and agreeable to sit up in chair. Therapy Pain Assessment Pain Present Pain Present Denied Pain M4 PT-IP Mobility and Gait Start: 11/06/19 14:10 Freq: NEEDED Status: Active Protocol: Document 11/09/19 14:04 CLB (Rec: 11/09/19 14:21 CLB [id number]) PT-Bed Mobility Assessment Supine to Sit Supine to Sit Standby Assistance,Head of Bed Elevated Scooting Scooting to Edge of Bed Standby Assistance PT-Transfer Assessment Sit to and From Stand Sit to and from Stand Contact Guard Assistance,1 Person Assistance,Use of Upper Extremities Equipment Transfer Assistive Device Gait Belt,Front Wheeled Walker Orthotic/Prosthetic Devices or Brace: No Transfers Transfer Destination Chair Transfer Technique pt ambulated with FWW Transfer Ability Level of Assist Contact Guard Assistance,1 Person Assistance,Use of Upper Extremities Comments Mobility Comments Pt required SBA for bed mobility and CGA for sit<> stand with cues to keep walker close for safety and push up from bed or arms of chair rather than FWW. Pt ambulate in room on 2L ~50 ft w/FWW/CGA and assist with O2 line management. Pt Sp02 on 2L with activity 91%. Pt then ambulated ~25ft on RA per RN request and w/o AD. Pt Sp02 on RA with activity decreased to 87-89% with recovery within 1 minute of PLB. Pt left in reclined chair with chair alarm on, call light within reach and table close. Gait Assessment Gait Gait Assistance Required: Contact Guard Assist,Minimum Assistance,1 Person Assist Distance (Feet) 75 Able to Maintain Weight Bearing Status Yes During Gait Assistive Devices Assistive Device None,Gait Belt,Front Wheeled Walker Orthotic/Prosthetic Devices or Brace: No Gait Deviations General Gait Pattern Decreased Stride Length, Decreased Feet Clearance, Narrow Based Gait Factors Limiting Gait Function Factors Limiting Gait Function Decreased Activity Tolerance, Decreased Strength,Difficulty Following Directions,Poor Balance,Poor Safety Awareness, Respiratory Distress Comments Gait Comments Pt ambulated with FWW ~50ft requiring CGA, pt then ambulate w/o AD and required Min A with use of GB to assist with LOB during turns. Pt will be safer with use of FWW at this time. M5 PT-IP Objective Assessments Start: 11/06/19 14:10 Freq: NEEDED Status: Active Protocol: Document 11/06/19 11:31 AB (Rec: 11/06/19 14:24 AB [id number]) Orientation Orientation/Cognition Level of Alertness Confusional State Orientation Name Language Function Ability Hard of Hearing Safety Awareness Decreased Safety Awareness Memory Description Short Term Impaired,Halfway Impaired Gross Range of Motion Lower Extremity ROM Assessment Within Functional Limits Strength Lower Extremity Strength Hip 4-/5 Knee 4-/5 Muscle Tone Muscle Tone WNL No M6 PT-IP Treatment Start: 11/06/19 14:10 Freq: NEEDED Status: Active Protocol: Document 11/09/19 14:04 CLB (Rec: 11/09/19 14:21 CLB [id number]) Physical Therapy Treatment Other Treatments Other Treatment Performed seated [place] [id number] PT-IP Assessment and Plan Start: 11/06/19 14:10 Freq: NEEDED Status: Active Protocol: Document 11/09/19 14:04 CLB (Rec: 11/09/19 14:21 CLB [id number]) PT Summary Assessment and Plan Summary Impairments Strength,Balance,Coordination, Cognition,Bed Mobility, Transfers,Gait,Activity Tolerance Progress Towards Goals Slow Progress due to Activity Tolerance Assessment Summary Pt progress with gait distance to ~75ft. Pt ambulated w/o AD requiring Min A for LOB and unsteadiness and will be safer using FWW at this time. Pt Sp02 during activity on RA ranged from 87-89% with recovery to 90% within one minute of PLB. Pt lives alone and has caregiver for 4 hours a day. Son checks in on her but does not live with her. Pt with confusion states she lives with her and three children. Pt would benefit from SNF rehab at this time, if pt goes home pt would require assist with all mobility. Goals Bed Mobility Goal Independent Transfer Goal Independent,Front Wheeled Walker Gait Goal Independent,Front Wheel Walker Gait Distance 100 Days to Meet Goals 6 Frequency of Treatment Frequency Of Treatment Once a Day Treatment Plan Other Recommendations and Next Treatment ambulation Focus Recommendations To Nursing Amount of Assist Needed 1 Person Assist Discharge Recommendations PT Discharge Recommendations Home with 17/03 Assist,Home Health,SNF Rehab Equipment Needed for Home Before may need FWW Discharge Transportation Needs at Discharge Private Vehicle,Wheelchair/ Cabulance
--- NOTE | 2019-11-09 13:30 | PC.NURSE ---
Patient oriented to self, able to follow directions. RA sats after ambulation 88-89%. Once seated sats up to 90-93% on RA. Chair alarm on.
--- NOTE | 2019-11-09 13:37 | P.PN_ITS ---
Subjective Subjective Date Patient Seen: 11/09/19 Time Patient Seen: 13:37 Interval history: Patient overall feeling well no complaints. Was up ambulating with physical therapy. Weak and difficulty with balance but sats were better. Was on room air dropped to 88. Had been dropping significantly more in that period was on 1 L before that. Exam Vital Signs (past 8 hours): - 11/09/19 06:35 11/09/19 06:37 11/09/19 08:24 Temperature 97.8 F Pulse Rate 76 Respiratory Rate 18 17 18 Blood Pressure 160/85 H Pulse Oximetry 84 L 92 98 11/09/19 09:07 11/09/19 09:20 11/09/19 11:35 Temperature Pulse Rate 78 Respiratory Rate 16 16 Blood Pressure Pulse Oximetry 95 93 92 11/09/19 13:27 Temperature Pulse Rate Respiratory Rate Blood Pressure Pulse Oximetry 88 L Oxygen Delivery Method Room Air Oxygen Flow Rate 2 Narrative Exam Narrative: Alert female no acute distress mildly disheveled. HEENT exam is unremarkable mucous membranes moist. Neck supple without adenopathy lungs with diffuse decreased breath sounds and diffuse wheeze but maybe slightly improved. Heart regular rate and rhythm but distant abdomen is benign extremities unremarkable Objective Labs Result Diagrams: 11/08/19 06:35 11/08/19 06:35 Assessment & Plan Assessment & Plan narrative: Acute respiratory failure. Probably secondary COPD . And her viral infection. Slowly improving. Hopefully we can get her off her oxygen before discharge. Viral pneumonia. Mild. Slowly improving. No need for further treatment at this time. COPD. Slowly improving. Still with significant issues and probably will be a long-term issue is what I suspect. Will limit her quite a bit. Will go to oral prednisone hopefully will get her off her oxygen day and follow from there. Hypertension. Stable. Hypokalemia. Has been stable for days. Dementia. Major issue in her care. No other change. Disposition. Have talked to son an marketing planner. Due to her viral illness was not going to be able to go to a [place] [facility] [place]. Currently today is not able to go home. Will have to get her off her medicine IV and see if she stable enough to go home. Not sure what to do if she is not. One option might be hospice. Issue is that she could probably go home with a walker but she is not capable of the insight to know when to use it. More than 35 minutes spent in total care. Quality VTE Deep Vein Thrombosis/Pulmonary Embolism Present on Admission: No
[2019-11-09] MEDS: predniSONE 20 MG TABLET 40 MG PO (14:30)
--- NOTE | 2019-11-09 15:45 | OT.IP.TRT ---
Current Diagnoses Chronic obstructive pulmonary disease with (acute) exacerbation (11/06/19) Occupational Therapy Treatment Note M3 OT- IP Subjective and Pain Start: 11/09/19 16:37 Freq: Status: Active Protocol: Document 11/09/19 15:45 PJM (Rec: 11/09/19 16:38 PJM [id number]) OT- Subjective Occupational Therapy Visit Type Type Administrative Note Visit Start Time 15:45 Notes OT referral received. Will initiate OT eval in AM.
[2019-11-09] MEDS: QUETIAPINE 25 MG TABLET 12.5 MG PO (18:00)
[2019-11-09] MEDS: LORazepam 0.5 MG TABLET PO (22:14)
[2019-11-10] VITALS (8 sets, daily range): BP systolic 133–151; BP diastolic 80–91; PULSE 74–96; RESP 12–18; TEMP 36.2–37.6; O2SAT 87–95
--- NOTE | 2019-11-10 06:18 | PC.NURSE ---
Pt rested overnight with signs of discomfort. Pt made no attempts to get OOB unassisted. Pt o2 sat remained at 94% on 1L NC. Goal to wean off o2. Respriations regular. No cough noted. Pt remains on PO Prednisone. Pt did not void overnight, allowed to sleep. Personal items at bedside, including water to drink.
--- NOTE | 2019-11-10 08:35 | P.PN_ITS ---
Subjective Subjective Date Patient Seen: 11/10/19 Time Patient Seen: 08:35 Interval history: Patient overall feeling well today. No new complaints or problems. No chest pain. No shortness of breath still on oxygen. Ambulated some yesterday. Biggest issue was balance. And insight. At least physical therapist is worried about that Exam Vital Signs (past 8 hours): Oxygen Delivery Method Nasal Cannula Oxygen Flow Rate 0 Narrative Exam Narrative: Alert smiling confused female in no acute distress. Neck supple without adenopathy JVD or bruits. Lungs with decreased breath sounds throughout with occasional rhonchi and wheeze. Heart is regular rate and rhythm although distant. Abdomen is soft positive bowel sounds nontender. Extremities without cyanosis clubbing edema. Neurologic exam is nonfocal. P sychologically she is happy and completely disconnected from where she is. Objective Labs Result Diagrams: 11/08/19 06:35 11/08/19 06:35 Assessment & Plan Assessment & Plan narrative: Infectious disease. Positive for essentially a cold virus which who with her limited pulmonary reserve impacted her ability to stay at home. And created her pulmonary decline. I think it is very unlikely she has coded but I am unable to place or without a negative test. We discussed this option. Both with social service and son. Will test today. Acute respiratory failure. Slowly improving still requiring oxygen may require oxygen to go home which would be a significant worsening in condition. Will continue O2 for now continues oral steroids and see how she does. In hoping she will not require O2. COPD exacerbation. Slow improvement. Baseline is probably borderline for oxygen requirement but is not needed in the past and has done well. Has had some progressive decline. May just need oxygen at baseline will have to see what happens over the next 4-6 weeks. Dehydration. Stable at this time. Euvolemic. Hypokalemia. Will check 1 more time tomorrow but has been stable. Code status DNR. GI prophylaxis not needed. DVT prophylaxis on SCDs. Disposition. This is where issue resides. I do not believe she is capable going home under current living situation with intermittent checks by kids and 4 hours a day of care. I am not sure the going to be able to mobilize further care and will require going to care home issue is nursing homes on take her without covered testing and it is unclear of whether because of her cold they will take her otherwise. At the risk of this virus is very low may need to test to see if it is gone. This process could take 3 or 4 days and it is unclear. I did have a long discussion with son had will have to see what happens. I will rediscuss with him today. Will test recall that and will see what happens Quality VTE Deep Vein Thrombosis/Pulmonary Embolism Present on Admission: No
--- NOTE | 2019-11-10 08:45 | CM.DPC ---
Addendum entered by Deisy Hart R.N. 11/10/19 09:22: Spoke to patient's son, Austin. Stated, he can't afford 24 hour a day care givers, since he calculated cost, and would enable her to afford to go to a terminal operations manager care facility. Discussed short term caregiving, until openings come up at facility, and son stated, he hadn't thought of that. Son stated, he may have to appeal discharge process, but let him know that if MD deems medically stable, can only appeal for 24 hours, and then, if denied, will get billed. Son also expressed concerns with not knowing how much it would cost for patient to go to [facility]. Gave son some facilities that he should call, and let him know that [facility] is an option, but can't accept until results of COVID-19 are in. Gave him [facility] number, Mohini Joy, encouraged him to follow up with [facility]. This outpatient case manager and son will discuss what he found out this afternoon. Addendum entered by Deisy Hart R.N. 11/10/19 08:55: Called [facility]. Their phone number is: [phone]. Spoke to a staff member, microbiology lab manager is not in. Stated that they are expecting a room to open up soon, but is private pay. Stated that daily rate depends upon assessment and care needs. Original Note: IAP Cont: Dr. Hong came by care management office. Stated that he did have a conversation with son, Austin, and . Stated, he didn't think that they are ready for hospice as of yet. Dr. Hong stated that patient can't go home unless patient has 24 hour caregivers, which this outpatient case manager will discuss with family over the phone. Let Dr. Hong know that [facility] is contracted with their insurance, and they will not accept patients unless they have COVIDA-19 testing done. He will go ahead and order. Left a message with Maryan at [facility] in admissions, since they are contracted with patient's insurance, and let her know that patient is to be tested. Called [facility] and spoke to Mohini in admissions. Stated that they do have beds available, but are not contracted with patient's insurance. Stated that they can establish a one time contract, but patient will be charged a certain amount, and Mohini could not state how much it would cost since she wouldn't know until they received the bill. She will go ahead and review, since they do have some beds available, but they are filling up. Information sent to her as well. P: DCP will call son and have discussion on discharge planning. They have mentioned in prior conversation that they have been looking into facilities. Deisy Hart RN/Director Fundraising
[2019-11-10] MEDS: predniSONE 20 MG TABLET 40 MG PO (08:59)
[2019-11-10] MEDS: SODIUM CHLORIDE 0.9% FLUSH 10 ML IV ×2 (08:59→16:32)
[2019-11-10] MEDS: lisinopriL 5 MG TABLET PO (08:59)
[2019-11-10] MEDS: ALBUTEROL/IPRATROPIUM 3 ML AMPUL INH (09:47)
--- NOTE | 2019-11-10 10:32 | CM.DPC ---
Addendum entered by Deisy Hart R.N. 11/10/19 11:19: Noticed in a note from NNAMDI Becerra on 11/07, that [facility] declined to accept. This had not been mentioned to this case worker during conversation with Barbara in admissions. Left Barbara a message, have already faxed over information on patient. In message to Barbara, did let her know that family does have [facility] plan in place, but will need some skilled rehab before going home. Will await follow up phone call. Addendum entered by Deisy Hart R.N. 11/10/19 10:55: Received a call from TAM[facility], her name was Shawna. Stated that she had spoken to son, and he was appealing discharge, and wanted records sent over to her by 5:00pm. Let her know that patient is not being discharged yet, and she stated, she wanted records anyway, and would be faxing over a request. Called son Austin back, and he confirmed that he did appeal discharge. Let him know that patient is not being discharged today, and encouraged him to call TAMMIE back, so he can appeal if needed when Dr. Hong feels that patient is medically stable and wants to discharge her, if she does not have a facility to go to as of yet. He stated that he would call them. Gave him update that [facility] is reviewing, as well as [facility]. He mentioned that he called some facilities, [facility] will have availabilities in approximately 2 weeks, and that [facility] is requesting further information from patient's hospital stay. Son is hoping that information can be sent over to [facility]. Had to explain to patient that [facility] is not a Medicare covered facility, is private pay, but can be [facility] plan. Son is hopeful to get patient over to residential before she transitions over to [facility] assisted living. Will call [facility]. Original Note: DCP Cont: Spoke to Barbara in admissions at [facility] who stated that they do have bed availabilities and do accept [facility]. Gave her an update on patient. Went ahead and faxed over face sheet, P.T. notes, prog notes, H&P, as well as med sheets for her to review. Let her know that her physician did order a COVID-19 test. Spoke to Maryan at [facility]. Updated her as well that patient is having COVID-19 testing done. Stated that she did review some of the referral that was sent over. Let her know that there is a termite renewal inspector plan for patient to go to memory care facility, but is too weak to go home alone at this time. Let her know the names of the facilities that son is looking in to. Maryan stated that they do have beds available. She requested more information, such as P.T/O.T. notes, nursing notes. last couple of days of prog notes, as well as med list. Went ahead and faxed this over to her. P: DCP to continue to follow. At this time, [facility] or [facility] are the two possibilites, [facility] reviewing, but son concerned that he will not know the cost. Will plan on calling son this afternoon to touch base. Deisy Hart RN/Electrical Continuity Tester
--- NOTE | 2019-11-10 13:49 | CM.DPC ---
DCP Cont: Maryan from [facility] in called back. Stated, they can accept patient. She had already spoken to son, Austin. She was inquiring about her being on Seroquel, and let her know that patient has been on this medication prior to hospital admission. She will work on [facility] authorization, for this can take a couple of days. They will accept her when COVID-19 results come back. This could be a few days as well. Have not yet heard back from Barbara at [facility]. P: DCP to continue to follow. [facility] can accept patient. Deisy Hart
--- NOTE | 2019-11-10 13:57 | PT.IPTN ---
Current Diagnoses Chronic obstructive pulmonary disease with (acute) exacerbation (11/06/19) Physical Therapy Treatment Note M2 PT-IP Current Condition Start: 11/06/19 14:10 Freq: NEEDED Status: Active Protocol: Document 11/06/19 11:31 AB (Rec: 11/06/19 14:24 AB [id number]) Physical Therapy Current Condition Current Condition Evaluation Date 11/06/19 Treatment Diagnosis COPD exac; generalized weakness Onset Date 11/05/2019 Precautions Other Precautions droplet precautions; fall precaution M3 PT-IP Subjective Start: 11/06/19 14:10 Freq: NEEDED Status: Active Protocol: Document 11/10/19 13:59 SP (Rec: 11/10/19 14:31 SP [id number]) Subjective Physical Therapy Visit Type Type Treatment Note Visit Start Time 01:17 Visit Stop Time 01:57 Total Visit Minutes 40 Number of GEODESY TEACHER Visits 3 Physical Therapy Visit Comments Patient Comments Pt was sitting EOB when arrived asking PICKER AND PACKER was reassuring patient of location of her belongings were, my clothes and purse are gone and I don't know where. Pt was willing to work with therapy. Therapy Pain Assessment Pain Present Pain Present Denied Pain M4 PT-IP Mobility and Gait Start: 11/06/19 14:10 Freq: NEEDED Status: Active Protocol: Document 11/10/19 13:59 SP (Rec: 11/10/19 14:31 SP [id number]) PT-Bed Mobility Assessment Supine to Sit Supine to Sit Standby Assistance Sit to Supine Sit to Supine Standby Assistance Scooting Scooting to Edge of Bed Standby Assistance Scooting Up and Down in Bed Standby Assistance PT-Transfer Assessment Sit to and From Stand Sit to and from Stand Contact Guard Assistance,1 Person Assistance,Use of Upper Extremities Equipment Transfer Assistive Device None,Gait Belt,Front Wheeled Walker Transfers Transfer Destination Bed,Chair Transfer Technique pt ambulated no AD CGA and FWW SBA Transfer Ability Level of Assist Standby Assistance,Contact Guard Assistance,Use of Upper Extremities Comments Mobility Comments Pt was seated at EOB when arrived, PICKER AND PACKER in room discussing where her belongings were your clothes are in the closet and purse either in the safe or went home with family. PICKER AND PACKER told patient stated would check with nurse on their where abouts while working with PT. Pt was able to complete sit<> stand CGA with no AD, SBA using FWW with cuing for proper hand placement for safety. Pt demonstrated use of hand walking on end of bed while using bed for contact support, little unsteady walking without UE support end of bed to chair, no LOB. Pt self recovery during wt shift deviation during turn to sit in chair using chair arm for support and CGA- Min A, demonstrated quick descent, cued for slow muscular controlled sit for safety with verbal understanding. Pt sit to stand using FWW SBA with redirection cues for pushing up from chair and was able to walk around room and back to chair x2 assessments: 1 room air SaO2 decreased to 87% and 90% on 1 L supplimental O2 during mobility. Educated on proper slow diaphramatic breath for saturation recover within seconds on 1 L back to 93%. Pt is more stable using FWW requiring SBA forc cuing of obstacle mgt safety obstacle with FWW and proper positioning during turn and backing up completely. Pt was able to complete sitting to supine and scoot up in bed with HOB flat SBA- Mod I. GEODESY TEACHER reviewed Le exercises seated while was in chair and supine to progress in strengthening. GEODESY TEACHER reviewed proper use of call light. Pt was laying in bed with bed alarm armed and call light and all needs in reach when left. Gait Assessment Gait Gait Assistance Required: Contact Guard Assist,Minimum Assistance,1 Person Assist Distance (Feet) 75 Able to Maintain Weight Bearing Status Yes During Gait Assistive Devices Assistive Device None,Gait Belt,Front Wheeled Walker Orthotic/Prosthetic Devices or Brace: No Gait Deviations General Gait Pattern Antalgic,Decreased Stride Length,Decreased Feet Clearance,Flexed Trunk,Narrow Based Gait Factors Limiting Gait Function Factors Limiting Gait Function Decreased Activity Tolerance, Decreased Strength,Difficulty Following Directions,Poor Balance,Poor Safety Awareness, Respiratory Distress Comments Gait Comments Pt ambulated from chair to across room approx 20 ft x3, CGA- SBA using FWW with safety cuing for obstacle mgt and CGA- Min with no AD secondary to unsteady reaching/using end of bed for support. O2 desaturation on room air to 87 % during gait, 88-90% on 1 L durign mobility. GEODESY TEACHER provided O2 line mgt throughout tx. PT-Balance Assessment Sitting Balance and Reactions Static Sitting Balance Ability Good Dynamic Sitting Balance Ability Good Standing Balance and Reactions Static Standing Balance Ability Good Dynamic Standing Balance Ability Fair Device Used FWW M5 PT-IP Objective Assessments Start: 11/06/19 14:10 Freq: NEEDED Status: Active Protocol: Document 11/06/19 11:31 AB (Rec: 11/06/19 14:24 AB [id number]) Orientation Orientation/Cognition Level of Alertness Confusional State Orientation Name Language Function Ability Hard of Hearing Safety Awareness Decreased Safety Awareness Memory Description Short Term Impaired,Skilled Nursing Impaired Gross Range of Motion Lower Extremity ROM Assessment Within Functional Limits Strength Lower Extremity Strength Hip 4-/5 Knee 4-/5 Muscle Tone Muscle Tone WNL No M6 PT-IP Treatment Start: 11/06/19 14:10 Freq: NEEDED Status: Active Protocol: Document 11/10/19 13:59 SP (Rec: 11/10/19 14:31 SP [id number]) Physical Therapy Treatment Exercises Exercises Ankle Pumps,Heel Slides, Straight Leg Raises,Seated Knee Flexion/Extension Education Education Provided Safety Other Treatments Other Treatment Performed seated marches, diaphramatic breathing. M7 PT-IP Assessment and Plan Start: 11/06/19 14:10 Freq: NEEDED Status: Active Protocol: Document 11/10/19 13:59 SP (Rec: 11/10/19 14:31 SP [id number]) PT Summary Assessment and Plan Potential Rehabilitation Potential Fair Status of Condition at Evaluation Evolving Summary Impairments Strength,Balance,Coordination, Cognition,Bed Mobility, Transfers,Gait,Activity Tolerance Progress Towards Goals Slow Progress due to Activity Tolerance Assessment Summary Pt progress with gait distance to ~75ft. Pt ambulated w/o AD requiring Min A for LOB and unsteadiness demosntrated furniture walking, SBA with safety cuing while using FWW obstacle mgt and will be safer using FWW at this time. Pt Sp02 during activity on RA ranged from 87-89% with recovery to 90% within one minute of PLB. Pt maintained low 90s on 1 L during mobility . Pt lives alone and has caregiver for 4 hours a day. Son checks in on her but does not live with her. Pt with confusion states she lives with her and three children. Pt would benefit from SNF rehab at this time, if pt goes home pt would require 24/7 assist with all mobility using FWW at this time. Goals Bed Mobility Goal Independent Transfer Goal Independent,Front Wheeled Walker Gait Goal Independent,Front Wheel Walker Gait Distance 100 Days to Meet Goals 6 Frequency of Treatment Frequency Of Treatment Once a Day Treatment Plan Physical Therapy Treatment Plan Bed Mobility Training,Transfer Training,Gait Training, Therapeutic Exercise,Balance Retraining,Discharge Planning, Hot or Cold Pack,Neuromuscular Re-ed,Coordination Retraining ,Manual Therapy Other Recommendations and Next Treatment ambulation LRAD. Focus Recommendations To Nursing Amount of Assist Needed 1 Person Assist Discharge Recommendations PT Discharge Recommendations Home with 24/ Assist,Home Health,SNF Rehab Other Discharge Recommendations If safe to go home, need fWW and require caregiver training 24/7 assist. Equipment Needed for Home Before may need FWW Discharge Transportation Needs at Discharge Private Vehicle,Wheelchair/ Cabulance
--- NOTE | 2019-11-10 14:18 | PC.NURSE ---
Pt denies pain and SOB; O2 2 L=92%, ls diminished; pt is tolerating diet and swallows pills whole; generalized weakness; COVID swab completed for SNF placement; PT in room
--- NOTE | 2019-11-10 14:21 | OT.IP.EVAL ---
Current Diagnoses Chronic obstructive pulmonary disease with (acute) exacerbation (11/06/19) Occupational Therapy Inpatient Evaluation/Re-Eval M1 PT/OT-IP Prior Functional Status Start: 11/06/19 14:10 Freq: NEEDED Status: Active Protocol: Document 11/10/19 14:21 PJM (Rec: 11/10/19 16:55 PJ [id number]) Medical Review Prior Functional Status Medical History Reviewed No Communication able to make needs know but with confusion Mobility and Gait pt stated that she walked without a device at home Activities of Daily Living and IADL's pt is not a reliable historian , but states she was independent with all self care , no family here to confirm Prior Functional Level (Other details) Per chart notes, pt had caregiver 4 hrs/day and son and daughter checked in daily. Social History Household Members spouse Living Arrangements House Additional Social History Comment No family here to confirm home situation M2 OT-IP Current Condition Start: 11/09/19 16:37 Freq: Status: Active Protocol: Document 11/10/19 14:21 PJM (Rec: 11/10/19 16:55 PJ [id number]) Occupational Therapy Current Condition Current Condition Evaluation Date 11/10/19 Treatment Diagnosis decreased cognition affecting home safety,DX: acute resp failure, COPD exac Post Operative Precautions Other Precautions fall risk, confusion, bed/ chair alarm 1-2 L O2 M3 OT- IP Subjective and Pain Start: 11/09/19 16:37 Freq: Status: Active Protocol: Document 11/10/19 14:21 PJM (Rec: 11/10/19 16:55 [facility] [id number]) OT- Subjective Occupational Therapy Visit Type Type Initial Evaluation Visit Start Time 14:05 Visit Stop Time 14:21 Total Visit Minutes 16 Occupational Therapy Visit Comments Patient Comments I have to get home to my children. I don't know who is taking care of them. My is working out of town. Patient/Caregiver Goals to go home and see her children and her puppy OT Pain Assessment Pain When Pain Assessed After Treatment Pain Present Pain Present Denied Pain M4 OT- IP ADL's Start: 11/09/19 16:37 Freq: Status: Active Protocol: Document 11/10/19 14:21 PJM (Rec: 11/10/19 16:55 PJ [id number]) OT [id number] Comments OT Self-Feeding Comments to be assessed OT ADL-Grooming General Evaluation Grooming Ability Standby Assistance Areas Needing Assistance Combing/Brushing Hair,Face Washing Comments OT Grooming Comments fair thoroughness due to decreased attention to task OT ADL-Oral Care Comments Oral Care Comments pt declined denture care this session OT ADL-Dressing General Eval Upper Body Dressing Ability Standby Assistance Lower Body Dressing Ability Standby Assistance Areas Needing Assistance Socks OT ADL-Toileting Comments OT Toileting Comments pt declined need to use bathroom this session, has incontinent brief on OT ADL-Bathing Comments OT Bathing Comments to be assessed M5 OT- IP IADL's Start: 11/09/19 16:37 Freq: Status: Active Protocol: Document 11/10/19 14:21 PJ (Rec: 11/10/19 16:55 [facility] [id number]) OT-Instrumental Activities of Daily Living Deficits IADL Deficits Identified Deficits Home Safety Awareness Awareness of Need for Assistance at Home Decreased Awareness Ability to Problem Solve Emergency Unable to Problem Solve Situations Home Safety Comments Pt needs assistance with all IADLS at present due to cognitive status. Medication Management Medication Management Caregiver Administers Medication Management Comments Pt should not have access to medications. Must be given by caregiver Money Management Money Management Caregiver Provides Assistance Money Management Comments All finances must be managed by caregiver. Meal Preparation Meal Preparation Caregiver Provides Assist Meal Preparation Comments Pt not safe to use stove or do any hot meal preparation. Pt unable to initiate appropriate meal planning or initiate eating throughout day Landscape Drafter Landscape Drafter Caregiver Provides Assist Driving Driving Caregiver Provides Assist M6 OT- IP Functional Cognition Start: 11/09/19 16:37 Freq: Status: Active Protocol: Document 11/10/19 14:21 PJ (Rec: 11/10/19 16:55 [facility] [id number]) Cognitive Factors Limiting Selfcare Function Cognitive Ability Level of Alertness Alert,Confusional State Patient Orientation Name Attention Span Ability Capable of Focused Attention, Unable to Sustain Attention Ability to Follow Commands Able to Follow One Step Commands Memory Description Immediate Impaired,Short Term Impaired,Pharmacy Aide Impaired, Working Impaired Safety Awareness Decreased Recall of Precautions,Decreased Ability to Apply Precautions, Underestimates Need for Assistance Problem Solving Ability Unable to Identify Errors, Needs Assist to Identify Solutions Executive Function Ability Unable to Hold Focus,Unable to Filter Distractions,Unable to Make Plans,Unable to Organize Plans,Unable to Remember Details,Unable to Integrate Past Experience With Present Action Abstract Thinking Ability Unable to Make Generalizations ,Unable to Draw Logical Conclusions,Unable to Be Adaptable in Thinking Cognitive Comments Cognitive Assessment Comments Pt oriented to self only. Perseverating on needing to go home to take of her small children and a puppy. Pt does follow one step commands. Pleasant and cooperative but with poor sustained attention to any task due to internal and external distraction. Pt needs close 24/7 supervision for safety for all self care tasks and mobility for safety. OT- Vision and Hearing OT- Hearing Assessment OT- Hearing Assessment WFL OT- Vision Assessment Visual Acuity WFL,Glasses All The Time Vision Assessment Comments Pt can see wall clock but unable to tell tiem due to confusion. M7 OT- IP Mobility and Balance Start: 11/09/19 16:37 Freq: Status: Active Protocol: Document 11/10/19 14:21 PJM (Rec: 11/10/19 16:55 [facility] [id number]) OT- Bed Mobility Assessment Supine to Sit Supine to Sit Assist Standby Assistance OT-Transfer Assessment Comments Mobility Comments Pt declined OOB this session OT- Gait Assessment Comments Gait Ability Comments see P.T. notes OT- Balance Assessment Sitting Balance and Reactions Static Sitting Balance Ability Good Dynamic Sitting Balance Ability Good Comments Other Balance Tests/Deviations/Treatment see P.T. notes : M8 OT- IP Objective Assessments Start: 11/09/19 16:37 Freq: Status: Active Protocol: Document 11/10/19 14:21 PJM (Rec: 11/10/19 16:55 [facility] [id number]) OT Gross Range of Motion Upper Extremity Range of Motion Assessment Within Functional Limits OT Strength Upper Extremity Strength Assessment Within Functional Limits Hand Environmental Health Technologist Strength Hand Dominance Right OT- Coordination Assessment Comments Coordination Comments BUE WFL for basic self care OT-Muscle Tone Assessment Muscle Tone WNL Yes OT Sensation Assessment Comments Summary Comments Detects lt touch in both hands Edema Edema Absent M9 OT- IP Assessment and Plan Start: 11/09/19 16:37 Freq: Status: Active Protocol: Document 11/10/19 14:21 PJ (Rec: 11/10/19 16:55 [facility] [id number]) OT Summary Assessment and Plan Potential Analytic Complexity at Evaluation Low Summary OT Impairments Functional Cognition, Functional Mobility,Toileting, Bathing,Toilet Transfers, Shower Transfers Assessment Summary Low complexity OT assessment completed on this 84 yr old woman admitted with respiratory failure due to COPD exacerbation and cold virus. PMHX includes signficant dementia. See H&P for further details. Pt's primary performance deficits are poor functional cognition and decreased functional mobility. Pt oriented to self only and perseverating on needing to go home to take of her small children and a puppy. Pt does follow one step commands. She is pleasant and cooperative but with poor sustained attention to any task due to internal and external distraction. Pt declined out of bed this session but P.T. reports pt needs CGA for safety during all mobility with FWW and is not safe to ambulate alone. Pt will need close supervision , whenever she is awake, for safety with all self care tasks and functional mobility after discharge. Case management is working with family on d/c plan of SNF vs home with 24 hr caregivers. Plan one additional OT visit to assess out of bed self care skills as needed for family education re: safety issues. Goals Self-Feeding Goal Standby Assistance Grooming Goal Contact Guard Assistance Dressing Goal Standby Assistance Toileting Goal Standby Assistance Bathing Goal Minimal Assistance,Grab Bars, Hand Held Shower Sprayer Toilet Transfer Goal Contact Guard Assistance,ADA High Toilet,Grab Bars Shower Transfer Goal Contact Guard Assistance, Shower Chair,Grab Bars Patient/Caregiver Education Goal Caregiver Independent Assisting Patient Days to Meet Goals 1 Frequency of Treatment Frequency Of Treatment Once a Day Treatment Plan OT Treatment Plan Patient/Family Education Discharge Recommendations OT Discharge Recommendations SNF Rehab Other Discharge Recommendations vs home with 24/7 assist Home Equipment Needs shower seat with back, grab bars by shower and toilet, hand held shower hose Transportation Needs at Discharge Wheelchair/ Cabulance vs private vehicle
[2019-11-10] MEDS: QUETIAPINE 25 MG TABLET 12.5 MG PO (16:31)
--- NOTE | 2019-11-10 16:51 | PC.NURSE ---
Addendum entered by Karrie Rojas R.N. 11/10/19 20:16: Pt growing increasingly restless up in chair. Toileted in bathroom by DIRECTOR INBOUND SALES. Allevyn gentle border dressing placed to abraded pressure area over vertebral thoracic spine. Tylenol adminstered to treat restlessness. Pt is oriented to person and birthdate only. SCD's not placed as DIRECTOR INBOUND SALES reports these agitated pt last evening shift. Pt is dyspneic following toileting and return to bed. Room air 86-88%. Placed 02 per nc and saturation level increases to 92%. Bed alarm set and pt positioned on right side in bed. Original Note: Pt attempting out of bed and alarm sounds. Pt follows this staff writer's command to sit down on bed so this staff writer can don isolation gear. Pt is globally confused and was reoriented multiple times to place and situation. Pt reports needs clothes, shoes, going to sister's house, mother's house. Reassured pt in hospital overnight for monitoring and treatment for illness. One assist to recliner with chair alarm in place. Lights on and television on as per pt request. Multiple blankets applied for warmth. Pt dyspneic with exertion. Demonstrates pursed lip breathing. Room air 92-93% with rest.
[2019-11-10] MEDS: ACETAMINOPHEN 325 MG TABLET 650 MG PO (19:56)
[2019-11-11] VITALS (8 sets, daily range): BP systolic 126–157; BP diastolic 68–94; PULSE 75–95; RESP 18–22; TEMP 36.5–37.4; O2SAT 92–100
--- NOTE | 2019-11-11 06:40 | PC.NURSE ---
Slept most of the shift. checked @ 0200 SPO2 2 liters 02/NC 99%. Turned 02 down to 1 liter after 2 mins. rechecked pt. & sat. 97%.
--- NOTE | 2019-11-11 09:24 | PT.IPTN ---
Current Diagnoses Chronic obstructive pulmonary disease with (acute) exacerbation (11/06/19) Physical Therapy Treatment Note M2 PT-IP Current Condition Start: 11/06/19 14:10 Freq: NEEDED Status: Active Protocol: Document 11/06/19 11:31 AB (Rec: 11/06/19 14:24 AB [id number]) Physical Therapy Current Condition Current Condition Evaluation Date 11/06/19 Treatment Diagnosis COPD exac; generalized weakness Onset Date 11/05/2019 Precautions Other Precautions droplet precautions; fall precaution M3 PT-IP Subjective Start: 11/06/19 14:10 Freq: NEEDED Status: Active Protocol: Document 11/11/19 08:58 SP (Rec: 11/11/19 16:08 SP [id number]) Subjective Physical Therapy Visit Type Type Treatment Note Visit Start Time 08:58 Visit Stop Time 09:24 Total Visit Minutes 26 Number of PATTERN FITTER Visits 4 Physical Therapy Visit Comments Patient Comments Pt willing to work with PT. Therapy Pain Assessment Pain Present Pain Present Denied Pain M4 PT-IP Mobility and Gait Start: 11/06/19 14:10 Freq: NEEDED Status: Active Protocol: Document 11/11/19 08:58 SP (Rec: 11/11/19 16:08 SP [id number]) PT-Bed Mobility Assessment Supine to Sit Supine to Sit Standby Assistance Scooting Scooting to Edge of Bed Standby Assistance PT-Transfer Assessment Sit to and From Stand Sit to and from Stand Contact Guard Assistance,1 Person Assistance,Use of Upper Extremities Equipment Transfer Assistive Device Gait Belt,Front Wheeled Walker Orthotic/Prosthetic Devices or Brace: No Transfers Transfer Destination Chair Transfer Technique pt ambulated using fWW Transfer Ability Level of Assist Contact Guard Assistance, Minimal Assistance,Use of Upper Extremities Comments Mobility Comments Pt required SBA during bed mobility supine to sitting and scooting to EOB. CGA during sit <> stand with cues for proper hand placement and BUE self support with standing balance using FWW. PATTERN FITTER assessed stationary standing balance feet together and stagger with head turns wt shift lean back but self recovery with cues and provided CGA, UE support only required to reposition feet but able to maintain balance without UE. Pt demonstrated reaching for bed and chair arm during assessment gait without fWW requiring CGA-Min A for mobility steadiness, CGA -SBA during mobility gait using FWW x3 laps in room approx 90 ft, cued for body closer to FWW and obstacle mgt around end of bed tends to have FWW out in front and body stepping outside of FWW then almost wedged her hand between sink and fWW while taking large turn near sink. Pt requires safety cuing and SBA- CGA during mobility to decreased risk for falls using FWW and CGA- Min with no AD. Gait Assessment Gait Gait Assistance Required: Contact Guard Assist,Minimum Assistance,1 Person Assist Distance (Feet) 75 Able to Maintain Weight Bearing Status Yes During Gait Assistive Devices Assistive Device None,Gait Belt,Front Wheeled Walker Orthotic/Prosthetic Devices or Brace: No Gait Deviations General Gait Pattern Antalgic,Decreased Stride Length,Decreased Feet Clearance,Flexed Trunk,Narrow Based Gait Factors Limiting Gait Function Factors Limiting Gait Function Decreased Activity Tolerance, Decreased Strength,Difficulty Following Directions,Poor Balance,Poor Safety Awareness, Respiratory Distress Comments Gait Comments See mobility comments. PT-Balance Assessment Sitting Balance and Reactions Static Sitting Balance Ability Good Dynamic Sitting Balance Ability Good Standing Balance and Reactions Static Standing Balance Ability Fair Dynamic Standing Balance Ability Fair Device Used FWW, poor no AD M5 PT-IP Objective Assessments Start: 11/06/19 14:10 Freq: NEEDED Status: Active Protocol: Document 11/06/19 11:31 AB (Rec: 11/06/19 14:24 AB [id number]) Orientation Orientation/Cognition Level of Alertness Confusional State Orientation Name Language Function Ability Hard of Hearing Safety Awareness Decreased Safety Awareness Memory Description Short Term Impaired,Commercial Accountant Impaired Gross Range of Motion Lower Extremity ROM Assessment Within Functional Limits Strength Lower Extremity Strength Hip 4-/5 Knee 4-/5 Muscle Tone Muscle Tone WNL No M6 PT-IP Treatment Start: 11/06/19 14:10 Freq: NEEDED Status: Active Protocol: Document 11/11/19 08:58 SP (Rec: 11/11/19 16:08 SP [id number]) Physical Therapy Treatment Education Education Provided Safety Other Treatments Other Treatment Performed standing march, heel raises, LAQ, seated march, sit to stands, standing balande NBOS/ stagger see comments M7 PT-IP Assessment and Plan Start: 11/06/19 14:10 Freq: NEEDED Status: Active Protocol: Document 11/11/19 08:58 SP (Rec: 11/11/19 16:08 SP [id number]) PT Summary Assessment and Plan Potential Rehabilitation Potential Fair Status of Condition at Evaluation Evolving Summary Impairments Strength,Balance,Coordination, Cognition,Bed Mobility, Transfers,Gait,Activity Tolerance Progress Towards Goals Progressing Toward Goals,Slow Progress - Other Assessment Summary Pt progress with gait distance to ~90ft using FWW. Pt ambulated w/o AD requiring CGA - Min A for unsteadiness demosntrated furniture walking , SBA-CGA with safety cuing while using FWW obstacle mgt and will be safer using FWW at this time. Pt lives alone and has caregiver for 4 hours a day. Son checks in on her but does not live with her. Pt with confusion states she lives with her and three children. Pt would benefit from SNF rehab at this time, if pt goes home pt would require 24/7 assist for safety with all mobility using FWW at this time. Goals Bed Mobility Goal Independent Transfer Goal Independent,Front Wheeled Walker Gait Goal Independent,Front Wheel Walker Gait Distance 100 Days to Meet Goals 6 Frequency of Treatment Frequency Of Treatment Once a Day Treatment Plan Physical Therapy Treatment Plan Bed Mobility Training,Transfer Training,Gait Training, Therapeutic Exercise,Balance Retraining,Discharge Planning, Hot or Cold Pack,Neuromuscular Re-ed,Coordination Retraining ,Manual Therapy Other Recommendations and Next Treatment ambulation LRAD, standing Focus balance, check O2. Recommendations To Nursing Amount of Assist Needed 1 Person Assist Discharge Recommendations PT Discharge Recommendations Home with 24/7 Assist,Home Health,SNF Rehab Other Discharge Recommendations If safe to go home, need fWW and require caregiver training 24/7 assist. Equipment Needed for Home Before may need FWW Discharge Transportation Needs at Discharge Private Vehicle,Wheelchair/ Cabulance
[2019-11-11] MEDS: SODIUM CHLORIDE 0.9% FLUSH 10 ML IV (09:38)
[2019-11-11] MEDS: predniSONE 20 MG TABLET 40 MG PO (09:38)
[2019-11-11] MEDS: lisinopriL 5 MG TABLET PO (09:38)
--- NOTE | 2019-11-11 12:34 | CM.DPC ---
DCP Cont: Spoke to Maryan at [facility] in admissions. She was inquiring if patient was using Ativan. Spoke with nurse, Shanell, who stated that patient had received medication once, Friday, but has not been receiving. Maryan stated that if patient is discharged, may need to change PASSR to level 2, since she did not have medication at home. Maryan stated that she has submitted information for authorization with patient's insurance, and is hopeful that she should have this soon. Awaiting results of COVID-19 test as well in order for patient to be discharged. P: DCP to continue to follow. Maryan in admissions has also discussed [facility] care facilities with patient's son, Austin, as well, over the phone. Plan is for [facility] as soon as results of COVD-19 are in. Deisy Hart RN/[place]
--- NOTE | 2019-11-11 13:25 | PM.PN.1 ---
Subjective Subjective Date Patient Seen: 11/11/19 Time Patient Seen: 13:25 Interval history: Met with patient in room. She is sitting up in the chair leaning on her elbows. She is in no apparent distress. She does do some pursed lip breathing but no nasal flaring or intercostal retractions. Her O2 sats are 90-92% on room air. She refuses to keep her oxygen on. She states that she feels tired and worn out. She denies any cough. She has been eating. She is alert to person but not to place and time. She denies pain. Exam Vital Signs (past 8 hours): - 11/11/19 08:00 11/11/19 09:45 11/11/19 12:00 Temperature 97.7 F 99.1 F Pulse Rate 77 87 91 H Respiratory Rate 18 18 Blood Pressure 157/94 H 135/93 H 126/82 Pulse Oximetry 95 92 92 Oxygen Delivery Method Room Air Oxygen Flow Rate 0 Narrative Exam Narrative: Patient is alert and cooperative and interactive. She is in no apparent distress. Her vital signs are stable. T-max is 99.1?. HEENT: Shows mucous membranes moist and pink without any lesion Neck: Supple without adenopathy or thyromegaly Chest: Prolonged expiratory phase but no wheezes and no crackles and no rhonchi and decreased air exchange throughout Cor: Regular rate and rhythm with distant S1-S2 Abdomen: Positive bowel sounds, soft Extremities: No edema, pulses intact Objective Labs Result Diagrams: 11/08/19 06:35 11/08/19 06:35 Assessment & Plan Assessment & Plan narrative: 84-year-old female Assessment 1 COPD exacerbation secondary to acute upper respiratory infection metapneumovirus. Patient improving with supportive care and oral prednisone but very slowly. Plan: Continue oral prednisone Encourage patient to use oxygen I think this would be better and improve her feeling of fatigue. Awaiting for co vivid BI-RADS testing which was performed in order for placement into the [facility]. Results are still pending. Continue with supportive care with RT and albuterol nebulizers Assessment 2. Dementia, moderate. Plan: Continue with behavioral support. Continue with outpatient medications. Assessment 3. Hypertension well controlled Plan: Continue on same outpatient medications Disposition. Patient will be transferred to skilled care facility once results of Covid testing Quality VTE Deep Vein Thrombosis/Pulmonary Embolism Present on Admission: No
--- NOTE | 2019-11-11 14:37 | OT.IP.TRT ---
Current Diagnoses Chronic obstructive pulmonary disease with (acute) exacerbation (11/06/19) Occupational Therapy Treatment Note M2 OT-IP Current Condition Start: 11/09/19 16:37 Freq: Status: Active Protocol: Document 11/10/19 14:21 PJM (Rec: 11/10/19 16:55 PJM [id number]) Occupational Therapy Current Condition Current Condition Evaluation Date 11/10/19 Treatment Diagnosis decreased cognition affecting home safety,DX: acute resp failure, COPD exac Post Operative Precautions Other Precautions fall risk, confusion, bed/ chair alarm 1-2 L O2 M3 OT- IP Subjective and Pain Start: 11/09/19 16:37 Freq: Status: Active Protocol: Document 11/11/19 14:22 CCC (Rec: 11/11/19 14:37 CCC [email or web address]) OT- Subjective Occupational Therapy Visit Type Type Treatment Note Visit Start Time 14:05 Visit Stop Time 14:21 Total Visit Minutes 16 Occupational Therapy Visit Comments Patient Comments Pt agreeable to get up with OT in the room. Patient/Caregiver Goals TO go home. OT Pain Assessment Pain When Pain Assessed At Rest Pain Present Pain Present Denied Pain M4 OT- IP ADL's Start: 11/09/19 16:37 Freq: Status: Active Protocol: Document 11/11/19 14:22 CCC (Rec: 11/11/19 14:37 CCC [email or web address]) OT [id number] Comments OT Self-Feeding Comments not at meal time OT ADL-Grooming Comments OT Grooming Comments Pt states already did grooming needs earlier. OT ADL-Dressing General Eval Lower Body Dressing Ability Independent Areas Needing Assistance Socks Comments OT Dressing Comments Pt able to perla/doff socks independently while sitting. OT ADL-Toileting Comments OT Toileting Comments pt declined need to use bathroom this session, has incontinent brief on M5 OT- IP IADL's Start: 11/09/19 16:37 Freq: Status: Active Protocol: Document 11/10/19 14:21 PJM (Rec: 11/10/19 16:55 PJM [id number]) OT-Instrumental Activities of Daily Living Deficits IADL Deficits Identified Deficits Home Safety Awareness Awareness of Need for Assistance at Home Decreased Awareness Ability to Problem Solve Emergency Unable to Problem Solve Situations Home Safety Comments Pt needs assistance with all IADLS at present due to cognitive status. Medication Management Medication Management Caregiver Administers Medication Management Comments Pt should not have access to medications. Must be given by caregiver Money Management Money Management Caregiver Provides Assistance Money Management Comments All finances must be managed by caregiver. Meal Preparation Meal Preparation Caregiver Provides Assist Meal Preparation Comments Pt not safe to use stove or do any hot meal preparation. Pt unable to initiate appropriate meal planning or initiate eating throughout day Tab Card Press Operator Tab Card Press Operator Caregiver Provides Assist Driving Driving Caregiver Provides Assist M6 OT- IP Functional Cognition Start: 11/09/19 16:37 Freq: Status: Active Protocol: Document 11/11/19 14:22 [facility] (Rec: 11/11/19 14:37 [facility] [id number]) Cognitive Factors Limiting Selfcare Function Cognitive Ability Level of Alertness Alert,Confusional State Patient Orientation Name Attention Span Ability Capable of Focused Attention, Unable to Sustain Attention Ability to Follow Commands Able to Follow One Step Commands Memory Description Short Term Impaired,Lunch Wagon Operator Impaired,Working Impaired Safety Awareness Decreased Recall of Precautions,Decreased Ability to Apply Precautions, Underestimates Need for Assistance Problem Solving Ability Unable to Identify Errors, Needs Assist to Identify Solutions Executive Function Ability Unable to Hold Focus,Unable to Filter Distractions,Unable to Make Plans,Unable to Organize Plans,Unable to Remember Details,Unable to Integrate Past Experience With Present Action Abstract Thinking Ability Unable to Make Generalizations ,Unable to Draw Logical Conclusions,Unable to Be Adaptable in Thinking Cognitive Comments Cognitive Assessment Comments Today pt able to state her name, talk about what she did for a living and that she has 4 kids. Pt talking about being with her mother at one moment and then talking another moment that her kids are grown . M7 OT- IP Mobility and Balance Start: 11/09/19 16:37 Freq: Status: Active Protocol: Document 11/11/19 14:22 [facility] (Rec: 11/11/19 14:37 [facility] [email or web address]) OT-Transfer Assessment Sit to and From Stand Sit to and from Stand Standby Assistance Transfers Transfer Ability Standby Assistance,Contact Guard Assistance Technique Transfer Destination Chair Transfer Technique Stand Step Pivot Devices Transfer Assistive Devices Gait Belt,Front Wheeled Walker Comments Mobility Comments Pt with use of FWW SBA and without FWW as pt tends to forget using the FWW close SBA to CGA for balance. Pt's O2 on RA 91% and after education and practice of deep breathing able to get to 94-95% on RA. OT- Gait Assessment Comments Gait Ability Comments Close SBA with FWW and CGA without the FWW. OT- Balance Assessment Sitting Balance and Reactions Static Sitting Balance Ability Good Dynamic Sitting Balance Ability Good Standing Balance and Reactions Static Standing Balance Ability Fair M8 OT- IP Objective Assessments Start: 11/09/19 16:37 Freq: Status: Active Protocol: Document 11/10/19 14:21 PJM (Rec: 11/10/19 16:55 PJM [id number]) OT Gross Range of Motion Upper Extremity Range of Motion Assessment Within Functional Limits OT Strength Upper Extremity Strength Assessment Within Functional Limits Hand Housekeeping Manager Strength Hand Dominance Right OT- Coordination Assessment Comments Coordination Comments BUE WFL for basic self care OT-Muscle Tone Assessment Muscle Tone WNL Yes OT Sensation Assessment Comments Summary Comments Detects lt touch in both hands Edema Edema Absent M9 OT- IP Assessment and Plan Start: 11/09/19 16:37 Freq: Status: Active Protocol: Document 11/11/19 14:22 CCC (Rec: 11/11/19 14:37 CCC [email or web address]) OT Summary Assessment and Plan Potential Analytic Complexity at Evaluation Low Summary OT Impairments Functional Cognition, Functional Mobility,Toileting, Bathing,Toilet Transfers, Shower Transfers Progress Towards Goals Progressing Toward Goals Assessment Summary Pt mainly SBA with FWW for safety cues of use of FWW, otherwise CGA without the FWW. Per pt does not use a FWW at home, however due to pt's dementia, questionable historian. At this time due to pt's decreased functional cognition would require at least supervision during waking needs for ADl's and functional mobility. Therefore would benefit from increased care at home 24/ for waking hours or benefit from skilled rehab to maximize safety and mobility needs and then possibly moth exterminator care or memory care facility. Goals Self-Feeding Goal Standby Assistance Grooming Goal Standby Assistance Dressing Goal Standby Assistance Toileting Goal Standby Assistance Bathing Goal Minimal Assistance,Grab Bars, Hand Held Shower Sprayer Toilet Transfer Goal Contact Guard Assistance,ADA High Toilet,Grab Bars Shower Transfer Goal Contact Guard Assistance, Shower Chair,Grab Bars Patient/Caregiver Education Goal Caregiver Independent Assisting Patient Days to Meet Goals 2 Frequency of Treatment Frequency Of Treatment Once a Day Treatment Plan OT Treatment Plan Functional Cognition Training, Patient/Family Education, Discharge Planning Other Treatment Recommendations and Next assess ACL for pt Treatment Focus Discharge Recommendations OT Discharge Recommendations SNF Rehab Other Discharge Recommendations vs home with 24/7 assist Home Equipment Needs shower seat with back, grab bars by shower and toilet, hand held shower hose Transportation Needs at Discharge Private Vehicle
[2019-11-11] MEDS: QUETIAPINE 25 MG TABLET 12.5 MG PO (16:44)
[2019-11-11] MEDS: LORazepam 0.5 MG TABLET PO (20:14)
--- NOTE | 2019-11-12 00:54 | PC.NURSE ---
0000- Patient is sleeping quietly. Vitals, Pulse oximetry, and physical assessment deferred to allow patient to rest. Will monitor.
[2019-11-12 01:05] VITALS: BP 176/86; PULSE 77; RESP 16; TEMP 36.3; O2SAT 95
[2019-11-12 07:35] VITALS: BP 142/77; PULSE 83; RESP 18; TEMP 36.4; O2SAT 96
[2019-11-12 08:54] VITALS: BP 142/77; PULSE 83
[2019-11-12] MEDS: lisinopriL 5 MG TABLET PO (08:54)
[2019-11-12] MEDS: predniSONE 20 MG TABLET 40 MG PO (08:54)
[2019-11-12 10:00] VITALS: O2SAT 89
[2019-11-12] MEDS: LORazepam 0.5 MG TABLET PO ×2 (10:06→20:18)
--- NOTE | 2019-11-12 10:13 | OT.IPNOTE ---
Nursing states to hold from OT at this time due to pt just given medication for her anxiety.
--- NOTE | 2019-11-12 11:41 | PT.IPTN ---
Current Diagnoses Chronic obstructive pulmonary disease with (acute) exacerbation (11/06/19) Physical Therapy Treatment Note M2 PT-IP Current Condition Start: 11/06/19 14:10 Freq: NEEDED Status: Active Protocol: Document 11/06/19 11:31 AB (Rec: 11/06/19 14:24 AB [id number]) Physical Therapy Current Condition Current Condition Evaluation Date 11/06/19 Treatment Diagnosis COPD exac; generalized weakness Onset Date 11/05/2019 Precautions Other Precautions droplet precautions; fall precaution M3 PT-IP Subjective Start: 11/06/19 14:10 Freq: NEEDED Status: Active Protocol: Document 11/12/19 10:49 LJ (Rec: 11/12/19 11:41 LJ [id number]) Subjective Physical Therapy Visit Type Type Treatment Note Visit Start Time 10:49 Visit Stop Time 11:11 Total Visit Minutes 22 Notes Pt sitting in bed. Just recieved medication for anxiety Number of HEEL BUILDER MACHINE Visits 5 Physical Therapy Visit Comments Patient Comments Pt willing to work with PT. Therapy Pain Assessment Pain Present Pain Present Denied Pain M4 PT-IP Mobility and Gait Start: 11/06/19 14:10 Freq: NEEDED Status: Active Protocol: Document 11/12/19 10:49 LJ (Rec: 11/12/19 11:41 LJ [id number]) PT-Bed Mobility Assessment Supine to Sit Supine to Sit Independent Sit to Supine Sit to Supine Independent Scooting Scooting to Edge of Bed Independent Scooting Up and Down in Bed Independent PT-Transfer Assessment Sit to and From Stand Sit to and from Stand Contact Guard Assistance,1 Person Assistance,Use of Upper Extremities Equipment Transfer Assistive Device Gait Belt Orthotic/Prosthetic Devices or Brace: No Transfers Transfer Destination Bed Transfer Technique pt ambulated Transfer Ability Level of Assist Contact Guard Assistance,Use of Upper Extremities Comments Mobility Comments Pt independent with bed mobility being able to get into and out of bed, and reposition by herself. SBA for transfers without AD. Standing at sink, pt leaned on counter for all personal hygiene which took ~12 min. Gait Assessment Gait Gait Assistance Required: Contact Guard Assist,1 Person Assist Distance (Feet) 45 Assistive Devices Assistive Device None,Gait Belt Gait Deviations General Gait Pattern Antalgic,Decreased Stride Length,Decreased Feet Clearance,Flexed Trunk,Narrow Based Gait Factors Limiting Gait Function Factors Limiting Gait Function Decreased Activity Tolerance, Decreased Strength,Difficulty Following Directions,Poor Balance,Poor Safety Awareness, Respiratory Distress Comments Gait Comments Pt ambulated around the roon x2 walking to window seat and standing while holding onto cushions looking out the window. Pt then ambulated to sink and performed hygiene while leaning on sink. She then walked back to toe bed and stood for ~1 minute doing standing marches w/o support. She then sat onto the bed and independently swung her legs up and repositioned herself. Applied lotion to legs. M5 PT-IP Objective Assessments Start: 11/06/19 14:10 Freq: NEEDED Status: Active Protocol: Document 11/06/19 11:31 AB (Rec: 11/06/19 14:24 AB [id number]) Orientation Orientation/Cognition Level of Alertness Confusional State Orientation Name Language Function Ability Hard of Hearing Safety Awareness Decreased Safety Awareness Memory Description Short Term Impaired,Coke Wheeler Impaired Gross Range of Motion Lower Extremity ROM Assessment Within Functional Limits Strength Lower Extremity Strength Hip 4-/5 Knee 4-/5 Muscle Tone Muscle Tone WNL No M6 PT-IP Treatment Start: 11/06/19 14:10 Freq: NEEDED Status: Active Protocol: Document 11/12/19 10:49 LJ (Rec: 11/12/19 11:41 LJ [id number]) Physical Therapy Treatment Exercises Exercises Ankle Pumps,Gluteal Sets,Heel Slides,Straight Leg Raises, Seated Knee Flexion/Extension Education Education Provided Safety M7 PT-IP Assessment and Plan Start: 11/06/19 14:10 Freq: NEEDED Status: Active Protocol: Document 11/12/19 10:49 STEVE (Rec: 11/12/19 11:41 LJ [id number]) PT Summary Assessment and Plan Potential Rehabilitation Potential Fair Status of Condition at Evaluation Evolving Summary Impairments Strength,Balance,Coordination, Cognition,Bed Mobility, Transfers,Gait,Activity Tolerance Progress Towards Goals Progressing Toward Goals,Slow Progress - Other Assessment Summary Pt is able to walk without AD but requires CGA to SBA for stability and cueing. She will be much safer using FWW. She will require SNF for strengthening and balance training. Not safe to return home without 24/7 assistance. Goals Bed Mobility Goal Independent Transfer Goal Independent,Front Wheeled Walker Gait Goal Independent,Front Wheel Walker Gait Distance 100 Days to Meet Goals 6 Frequency of Treatment Frequency Of Treatment Once a Day Treatment Plan Physical Therapy Treatment Plan Bed Mobility Training,Transfer Training,Gait Training, Therapeutic Exercise,Balance Retraining,Discharge Planning, Hot or Cold Pack,Neuromuscular Re-ed,Coordination Retraining ,Manual Therapy Other Recommendations and Next Treatment ambulation LRAD, standing Focus balance, check O2. Recommendations To Nursing Amount of Assist Needed 1 Person Assist Discharge Recommendations PT Discharge Recommendations SNF Rehab Transportation Needs at Discharge Private Vehicle,Wheelchair/ Cabulance
--- NOTE | 2019-11-12 11:53 | OT.IPNOTE ---
Spoke to nursing and both OT and nurse agreed pt appears back to baseline for OT needs. Pt's is very pleasant and cooperative. Pt looking to go to skilled pending Covid 19 results.
--- NOTE | 2019-11-12 11:57 | OT.IPNOTE ---
Both nurse and OT agreed pt back to baseline for OT needs. Nursing will be able to provide supervision/assist as needed for ADL needs due to her dementia. Pt is very cooperative and to go to skilled rehab pending Covid 19 results.
--- NOTE | 2019-11-12 12:56 | P.PN_ITS ---
Subjective Subjective Date Patient Seen: 11/12/19 Time Patient Seen: 12:56 Interval history: Patient overall is feeling well. Little sad that she is at home. Otherwise no complaints or problems. When she ambulates without her oxygen she goes into the mid 80s. Does well with her oxygen. No chest pain. No shortness of breath. The Exam Vital Signs (past 8 hours): - 11/12/19 07:35 11/12/19 08:54 Temperature 97.6 F Pulse Rate 83 83 Respiratory Rate 18 Blood Pressure 142/77 H 142/77 H Pulse Oximetry 96 Oxygen Delivery Method Nasal Cannula Oxygen Flow Rate 0 Narrative Exam Narrative: Alert female breathing mildly hard just sitting in chair. No other change. Mucous membranes moist. Neck supple without adenopathy. Decreased breath sounds without no rhonchi or wheeze. Heart regular rate and rhythm. Abdomen is scaphoid. Extremities are normal. Objective Labs Result Diagrams: 11/08/19 06:35 11/08/19 06:35 Assessment & Plan Assessment & Plan narrative: COPD. Stable. On steroids. I think were at baseline at this point. Probably at baseline. Probably will need long-term oxygen. Probably has needed oxygen for some time. No other change. Will follow. Acute respiratory failure. Resolved. Infectious disease. Probably secondary to respiratory virus. Awaiting [place] aid testing. Dehydration. Resolved. Weakness. Combination a long-term issue in short-term illness. Continue physical therapy. FDC placement Sarah short term. Hypo Karen Ange. Stable. Dementia. No change. Poor nutritional status. Probably longstanding. Will follow. Continue to try to get her to eat better and will set up as an outpatient. Disposition. Biggest issue here is awaiting placement. Patient probably will need long-term placement. Not safe to go home with 4 hours of coverage. Discussed with plantar period will wait for chronic testing and hopefully discharge at that time Quality VTE Deep Vein Thrombosis/Pulmonary Embolism Present on Admission: No
--- NOTE | 2019-11-12 13:12 | CM.DPC ---
Addendum entered by Magda Kelley LPN 11/12/19 13:42: Dr. Hong confirms pt will be here until the Covid-19 test results are in. If-: pt will d/c to [facility] for rehab/recovery and with plan for pt's son to continue to consider 24/ assist for exterminator helper, either at home or a facility. He states that pt's son is not at this point interested in pursing the Hospice info visit option. Maryan/DONIS: confirms above. She has talked with pt's son Austin re AUGUSTINE options at d/c from snf that may include Memory Care and says he has indicated that this may be financially feasible. She states she was clear with Austin that the facility was not accepting anyone at this time who might need to stay on as a detention resident. Maryan also confirms that the request for snf auth with [facility] has been sent in. She has checked today and the auth is still pending. Maryan says the only thing at this point that would alter ability to accept is if they should have a pt test + for Covid -19, resulting in a facility lockdown. Will be following closely this weekend. Original Note: DCP: continued. Case received and last few days of EMR reviewed. Spoke with Dr. Hong when he was here today about 1230. Followed up with Maryan/[facility] ([facility] admissions). Updates:
[2019-11-12 15:00] VITALS: BP 142/77; PULSE 85; RESP 17; TEMP 36.4; O2SAT 90
[2019-11-12] MEDS: QUETIAPINE 25 MG TABLET 12.5 MG PO (16:59)
[2019-11-12 20:37] VITALS: O2SAT 94
[2019-11-13] VITALS (7 sets, daily range): BP systolic 116–193; BP diastolic 70–93; PULSE 70–103; RESP 16–20; TEMP 36.4–37.4; O2SAT 92–95
--- NOTE | 2019-11-13 08:19 | CM.DPC ---
Addendum entered by Magda Kelley LPN 11/13/19 15:49: Discussed case as planned with Dr. Gomez who confirmed that he had been in discussion with Dr. Hogn re the POC. He was updated on the insurance denial for snf setting. Discussed options for either pvt pay at the [facility] who have accepted pt pending COVID-19 rule out vs home with family staying with pt or pt with family and continued caregiver staff plus HH. Dr. Gomez agreed to talk with Austin, to be clear re the timelines for d/c. He signed updated Face/Face with confirmation that Dr. Garcia is the PCP. He agrees HH RN/PT/OT/SENIOR LEAD PROJECT MANAGER would be appropriate. At this point, as of right now, the COVID -19 test results are still pending. Dr Gomez does not want to d/c pt until this is confirmed as it will affect pt's options for care. Did talk with one of pt's caregivers by phone. She noted she understood that she could not ask for information but she was open to providing any information that she could. She noted that she had been helping pt at home for a couple of months and that it was clear to her that she should not be left alone. She has shared these thoughts with Austin. P: to check in with Dr. Gomez again tomorrow about his conversation with Austin and follow according. Addendum entered by Magda Kelley LPN 11/13/19 08:38: Spoke now with pt's son Austin with update and need for change of the d/c disposition. He wants to see what the physician says. OT/PT notes are reviewed. OT states pt is back to her baseline. PT notes show great progress with mobility but continue to recommend snf setting (unclear why at this point) Will talk with therapy team on today and request that they call Austin to update them on his mother's progress and current needs. At this point a d/c to home setting with continuation of home caregivers and family checking in plus HHS is likely the only option.Would encourage Austin to look more vigorously at his plan for [facility] or memory care setting for his mother. Will also give him agency caregiver info. Will discuss this with the rounding provider. Original Note: DCP: continued: just listened to vm left last evening after this dept was closed: from Maryan/[facility]. She reports that she had just heard from [facility] and the request for snf auth has been DENIED. Will discuss today with rounding provider as well as pt's son and proceed accordingly.
[2019-11-13] MEDS: predniSONE 20 MG TABLET 40 MG PO (09:15)
[2019-11-13] MEDS: lisinopriL 5 MG TABLET PO (09:15)
--- NOTE | 2019-11-13 10:31 | PT.IPTN ---
Current Diagnoses Chronic obstructive pulmonary disease with (acute) exacerbation (11/06/19) Physical Therapy Treatment Note M2 PT-IP Current Condition Start: 11/06/19 14:10 Freq: NEEDED Status: Active Protocol: Document 11/06/19 11:31 AB (Rec: 11/06/19 14:24 AB [id number]) Physical Therapy Current Condition Current Condition Evaluation Date 11/06/19 Treatment Diagnosis COPD exac; generalized weakness Onset Date 11/05/2019 Precautions Other Precautions droplet precautions; fall precaution M3 PT-IP Subjective Start: 11/06/19 14:10 Freq: NEEDED Status: Active Protocol: Document 11/13/19 09:58 KS (Rec: 11/13/19 11:37 KS [id number]) Subjective Physical Therapy Visit Type Type Treatment Note Visit Start Time 09:58 Visit Stop Time 10:31 Total Visit Minutes 33 Number of TERRAZZO LAYER Visits 6 Physical Therapy Visit Comments Patient Comments Pt reported feelings of weakness, but agreeable to work w/ therapy. Therapy Pain Assessment Pain Present Pain Present Denied Pain M4 PT-IP Mobility and Gait Start: 11/06/19 14:10 Freq: NEEDED Status: Active Protocol: Document 11/13/19 09:58 KS (Rec: 11/13/19 11:37 KS [id number]) PT-Bed Mobility Assessment Supine to Sit Supine to Sit Independent Sit to Supine Sit to Supine Independent Scooting Scooting to Edge of Bed Independent Scooting Up and Down in Bed Independent PT-Transfer Assessment Sit to and From Stand Sit to and from Stand Contact Guard Assistance,1 Person Assistance,Use of Upper Extremities Equipment Transfer Assistive Device Gait Belt Orthotic/Prosthetic Devices or Brace: No Transfers Transfer Destination Bed Transfer Technique pt ambulated w/o AD Transfer Ability Level of Assist Contact Guard Assistance,Use of Upper Extremities Comments Mobility Comments Pt reported that she is feeling weaker today, but denied SOB. Pt was in bed upon arrival and continues to be independent w/ all bed mobility. CGA for sit<>stand from EOB and CGA for ambulation. Pt ambulated to bathroom, Mod A for doffing of briefs and cues to use handrail when sitting on toilet. CGA for sit<>stand from toilet and Mod A donning briefs. Pt then ambulated to sink to perform hand washing and hair brushing. Pt has slow gait w/ decreased stride and foot clearance as well as flexed trunk. Pt remained balanced SBA for ~6 min at sink to perform hand washing and hair brushing. Pt then again reported weakness and returned to bed. O2 read low 80s on room air but quickly obed to low 90s in <20 sec. Instructed pt in ankle pumps, heel slides, quad sets, SLR, and glute sets and pt performed 10 of each w/ cues for breathing. Pts O2 stable lows 90s throughout LE strengthening exercises. Pt was confused throughout treatment, stating that she lives w/ her mom and sister who can help her at home. Pt left in bed w/ all needs in reach. Gait Assessment Gait Gait Assistance Required: Standby Assistance,Contact Guard Assist,1 Person Assist Distance (Feet) 30 Able to Maintain Weight Bearing Status Yes During Gait Assistive Devices Assistive Device None,Gait Belt Orthotic/Prosthetic Devices or Brace: No Gait Deviations General Gait Pattern Antalgic,Decreased Stride Length,Decreased Feet Clearance,Flexed Trunk,Narrow Based Gait Factors Limiting Gait Function Factors Limiting Gait Function Decreased Activity Tolerance, Decreased Strength,Difficulty Following Directions,Poor Balance,Poor Safety Awareness, Respiratory Distress Comments Gait Comments Please refer to mobility section for details. PT-Balance Assessment Sitting Balance and Reactions Static Sitting Balance Ability Good Dynamic Sitting Balance Ability Good Standing Balance and Reactions Static Standing Balance Ability Fair Dynamic Standing Balance Ability Poor Device Used none M5 PT-IP Objective Assessments Start: 11/06/19 14:10 Freq: NEEDED Status: Active Protocol: Document 11/06/19 11:31 AB (Rec: 11/06/19 14:24 AB [id number]) Orientation Orientation/Cognition Level of Alertness Confusional State Orientation Name Language Function Ability Hard of Hearing Safety Awareness Decreased Safety Awareness Memory Description Short Term Impaired,Nursing Educator Impaired Gross Range of Motion Lower Extremity ROM Assessment Within Functional Limits Strength Lower Extremity Strength Hip 4-/5 Knee 4-/5 Muscle Tone Muscle Tone WNL No M6 PT-IP Treatment Start: 11/06/19 14:10 Freq: NEEDED Status: Active Protocol: Document 11/13/19 09:58 KS (Rec: 11/13/19 11:37 KS [id number]) Physical Therapy Treatment Exercises Exercises Ankle Pumps,Gluteal Sets,Quad Sets,Heel Slides,Straight Leg Raises Education Education Provided Safety Other Treatments Other Treatment Performed LE strengthening, standing balance at sink M7 PT-IP Assessment and Plan Start: 11/06/19 14:10 Freq: NEEDED Status: Active Protocol: Document 11/13/19 09:58 KS (Rec: 11/13/19 11:37 KS [id number]) PT Summary Assessment and Plan Potential Rehabilitation Potential Fair Status of Condition at Evaluation Evolving Summary Impairments Strength,Balance,Coordination, Cognition,Bed Mobility, Transfers,Gait,Activity Tolerance Progress Towards Goals Progressing Toward Goals,Slow Progress - Other Assessment Summary Pt is doing well w/ bed mobility but needs CGA for most ambulation, SBA for standing at edge of sink. Pt needed Mod A for donning and doffing of briefs, and will need help w/ this at home. Frequent cues for breathing during LE strengthening exercises. At this time, pt is not safe to return home w/o 24/7 assist d/t pts poor safety awareness, decreased balance while ambulating, inability to don and doff own briefs and frequent cues for breathing. Goals Bed Mobility Goal Independent Transfer Goal Independent,Front Wheeled Walker Gait Goal Independent,Front Wheel Walker Gait Distance 100 Days to Meet Goals 6 Frequency of Treatment Frequency Of Treatment Once a Day Treatment Plan Physical Therapy Treatment Plan Bed Mobility Training,Transfer Training,Gait Training, Therapeutic Exercise,Balance Retraining,Discharge Planning, Hot or Cold Pack,Neuromuscular Re-ed,Coordination Retraining ,Manual Therapy Other Recommendations and Next Treatment ambulation LRAD, standing Focus balance, check O2. Recommendations To Nursing Amount of Assist Needed 1 Person Assist Discharge Recommendations PT Discharge Recommendations Home with 24/7 Assist,Home Health,SNF Rehab Other Discharge Recommendations If safe to go home, need fWW and require caregiver training 24/7 assist. Equipment Needed for Home Before may need FWW Discharge Transportation Needs at Discharge Private Vehicle,Wheelchair/ Cabulance
[2019-11-13] MEDS: LORazepam 0.5 MG TABLET PO (11:00)
[2019-11-13] MEDS: ACETAMINOPHEN 325 MG TABLET 650 MG PO (11:00)
--- NOTE | 2019-11-13 11:20 | P.PN_ITS ---
Subjective Subjective Date Patient Seen: 11/13/19 Time Patient Seen: 11:21 Interval history: Patient continues with overall issues. She has some increased shortness of breath today with elevated blood pressure to the 190s systolic. I think there is a component of anxiety. Dimensions seen to be 6 and in that she told me today she was living with her mom and dad and then her does well all none of which is accurate. She has been able to get up and and move around but should have assistance. Oxygen saturations seem fairly stable but I think she is using that when she ambulates. I think patient definitely needs greater level of assistance. The insurance company will not cover her for usp care secondary to feeling that she does not need adequate skilled services to cover that cost. However she clearly cannot be at home alone without significantly more assistance. She will need to have at the very least if can't going to usp with the family covering that cause privately she will need to have home health increased some assistance available to I think full-time including family and probably is going to need placement and a memory care unit secondary to her cognitive deficit. She denies any chest pain obeys commands speaks clearly but content is quite disordered. Exam Vital Signs (past 8 hours): - 11/13/19 08:26 11/13/19 08:30 11/13/19 10:57 Temperature 98.6 F Pulse Rate 75 Respiratory Rate 19 Blood Pressure 193/93 H 116/70 Pulse Oximetry 92 93 95 Oxygen Delivery Method Room Air Oxygen Flow Rate 0 Narrative Exam Narrative: Patient is anxious and fretful blood pressure is elevated to a systolic pressure of 192. Cognitive impairment in that she is not sure where she lives think she lives with her mom and dad uncertain where she is going. Speech is clear in articulation but the periportal with content Decreased breath sounds. Pulse regular there is no significant edema Abdomen nontender no hepatosplenomegaly Sensory and motor grossly intact. Objective Labs Result Diagrams: 11/08/19 06:35 11/08/19 06:35 Assessment & Plan Assessment & Plan narrative: Assessment 1. COPD chronic with acute respiratory failure exacerbation the that secondarily resolved. Patient has chronic poor baseline regular physician feels that she will need at least intermittent oxygen supplementation. Assessment 2 probable viral respiratory infection. Does not have return on her covid 19 viral test. I think with her increased blood pressure today and increased anxiety and her family facing the possibility that usp will not accept her unless they pay privately I think she should stay another day so that family and providers home health and physical therapy occupational therapy in the home will have an awareness of her infectious and contagiousness risk. Assessment 3 dehydration resolved at this point Assessment 4 weakness this is a chronic issue and will take some time to get her strength back if that occurs at all. Can do physical therapy and home health apparently at home long-term placement denied by insurance. Assessment 5 dementia fairly significant she is completely unclear where she is and where she lives. Assessment 6 disposition I think patient needs much more significant amount of a ssistance wherever she goes. I think that she is going to need to have some memory care as of component of that. At this point with usp being denied should probably have to go home with home health have physical therapy occupational therapy and maybe respiratory therapy as well as assistance with a caregiver available and on much more significant basis. 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 Time Spent With Patient Time with patient: Greater than 35 minutes Quality VTE Deep Vein Thrombosis/Pulmonary Embolism Present on Admission: No
[2019-11-13] MEDS: QUETIAPINE 25 MG TABLET 12.5 MG PO (16:58)
[2019-11-14 00:44] VITALS: BP 136/74; PULSE 84; RESP 18; TEMP 36; O2SAT 94
[2019-11-14 00:46] VITALS: O2SAT 94
[2019-11-14 08:00] VITALS: BP 182/82; PULSE 66; RESP 20; TEMP 36.6; O2SAT 96
[2019-11-14] MEDS: predniSONE 20 MG TABLET 40 MG PO (08:07)
[2019-11-14] MEDS: lisinopriL 5 MG TABLET PO (08:07)
--- NOTE | 2019-11-14 08:20 | CM.DPC ---
Discharge Planning/Care Management Advanced directive, confirm from FAMILY Start: 11/05/19 17:13 Freq: Q24H Status: Complete Protocol: Document 11/05/19 17:29 JJY (Rec: 11/05/19 17:29 JJY [id number]) Advance Directive, confirm on record Time 17:20 Person contacted ER staff Copy received Yes Document 11/06/19 17:13 AGW (Rec: 11/06/19 18:05 AGW [id number]) Advance Directive, confirm on record Time 17:20 Person contacted ER staff Copy received Yes Advanced directive available on record Yes CM Discharge Assessment Start: 11/06/19 12:59 Freq: Status: Active Protocol: Document 11/06/19 12:59 VM (Rec: 11/06/19 13:09 VM [id number]) Discharge Planning Assessment Advance Directives? No History Provided By Patient,Medical Record Prior Living Arrangements House Household Members spouse Type of transporation used prior to Relies on Others admit Independent with ADL's No Is patient alert and oriented? No Needs Assistance With Bathing,Grooming,Meal Prep, Toileting,Managing Medications ,Home Chores / Shopping Caregiver for Another No DME Already Rented / Owned FWW / Walker Patient/Family Preference Prison Facility,Home with Home Health Comment Process is early, will see how she does here in hospital. Have not yet been able to speak so son, have a call out to him for more information. Comment Unsure at this point how many hours of caregiving that is available. Discharge Plan Home with Home Health Transportation Arrangement Family Referrals Initiated Home Health Additional Comment Had Dr. Hong sign a face to face. If patient plan is home with home health Yes : Has signed face to face form been completed? Review Status In Process Next Review Type Continued Stay Review 11/06/19 13:02 CM Disch. Assessment Note by Deisy Hart Addendum entered by Deisy Hart R.N. 11/06/19 15:19: Patient is inpatient status as of today, which could make her eligible for prison. Austin, patient's son, called back. He had already been here seeing patient. He mentioned that she does live alone, but has caregivers that come in from 2:00pm until 6:00pm, and they help with dinner. Son lives nearby, and comes after dinner to sit with patient, and comes in the morning as well. He stated, before she got sick, she has been independent, doesn't use a walker, and has been even doing her own vacuuming. Let son know that patient could benefit from prison, if she continues to stay weak. Mentioned home health as well. Asked son if he had any preferences, should patient need prison, and he stated, I don't know, I haven't even thought of it. Offered to meet with son tomorrow to discuss options, and he will call this planner internship tomorrow when he is here. Original Note: DCP: Case received, EMR reviewed and checked on patient. Patient has dementia, and was sleeping. Attempted to reach son, Austin, left him a message to call back. Was able to speak to Dr. Hong and obtain information regarding her baseline cognition, activity, and living situation. Dr. Hong has been making house visits to see patient. DCP assessment completed based on information received. Patient is an 84 year old female who admitted yesterday afternoon to the care of the hospitalist team. PCP:Dr. Hong/TYESHA Alejo. Payer: confirmed: Medicare. Patient came to the hospital via ambulance secondary to respiratory distress. She has history of COPD, and dementia. Patient holds diagnosis of metapneumoviris, and is needing oxygen. According to Dr. Hong, patient has not been on home oxygen. According to Dr. Hong, patient is not smoking, because she forgets to. He also mentioned that patient has degressed in her activity level, and does not leave the home due to her dementia worsening. Stated that she does have a caregiver in the home, and son has been staying with her, but no other information is available. Have a call out to son, Austin. Asked Dr. Hong about hospice, and he mentioned, does not think that she is there yet. Can ask about palliative consult, as well. P: Patient is under OBS at this time, and is being reviewed by UR. Had Dr. Hong sign a face to face, to initiate home health upon discharge. He is anticipating that patient will be here for another couple of days due to the virus, and need for oxygen. Will also look at P.T. notes. Deisy Hart RN/Blast Furnace Operator Initialized on 11/06/19 13:02 - END OF NOTE
--- NOTE | 2019-11-14 08:20 | CM.DPC ---
Addendum entered by Magda Kelley LPN 11/14/19 13:02: Austin also confirmed that he has the [facility] Booklet for [facility], given to him in clinic by Dr. Hong and is aware of the various resources listed. Addendum entered by Magda Kelley LPN 11/14/19 11:52: Case discussed in Team Rounds with Dr. Monterroso and RN coordinator Rosana noting that the COVID-19 test results should have been received by now. Rosana planned to look into this. The culture was taken on the . Dr. Gomez was here shortly before noon. Test results still pending. POC including his discussion with pt's son Austin yesterday was discussed and then this d/c enterprise resource planner followed up with a call to Austin on his cell: [phone]. Went over the options again with Austin: a snf setting for a short time until a more specific home plan is in place or home with family support, caregivers and HH. Austin confirms that the family have no intention of paying privately at a snf. He acknowledges need to take pt home when she is ready for d/c. HH agency: discussed: referral now is into [facility] for RN/PT/OT/TUFTING MACHINE FIXER and PLATING OPERATOR. [facility] accepts, will need to know the status of the COVID -19 test at d/c but says their staff is prepared to care for pt's if + for this virus. Discussed pt's caregiver staff and her primary caregiver Monique with Austin. He says they are poised to help pt again but need to know the outcome of the COVID-19 as they also have families and care for other patients. Dr. Gomez is updated re all this and agrees the test results need to be received prior to d/c. Austin has been informed that the d/c will need to happen as soon as the results of tests are known. P: as per above. Home setting with [facility] (will need d/c summary and test update at d/c. Otherwise, all clinical has been sent including HH orders and the Face/Face completed today by Dr. Gomez) At this time the expectation is that the d/c will take place tomorrow... Original Note: DCP: continued: a check in of COVOD-19 test shows results still are pending. Have left a vm for admissions/[facility] to make sure that pt still has the option of going there under a short private pay stay while family continue to look at options for care. Will discuss POC again today with Dr. Gomez and talk again with pt's son with intent to have a firm d/c plan in place as soon as pt is deemed stable for d/c.
[2019-11-14 11:15] VITALS: BP 147/72; PULSE 65; RESP 16; TEMP 36.8; O2SAT 95
--- NOTE | 2019-11-14 11:37 | P.PN_ITS ---
Subjective Subjective Date Patient Seen: 11/14/19 Time Patient Seen: 10:37 Interval history: Dr. Gomez dictating progress note on Sue headache. Patient is 84-year-old chronically demented patient with COPD with acute respiratory exacerbation with a [place] pneumo virus at least possibly covered 19 doshi virus. That test is still pending this is the 4th day since that swab. She is fairly stable at this point not requiring extra oxygenation is able to get up with single assist to go to the bathroom. Dementia continues to be a limiting factor. Family has decided not to send her to senior living but they would feel like they need before they can get caregivers to come in and help her in home that they need to have the covered 19 test results back. That is an issue for risk of management for people who would be providing her care and assistance. Exam Vital Signs (past 8 hours): - 11/14/19 08:00 Temperature 97.9 F Pulse Rate 66 Respiratory Rate 20 Blood Pressure 182/82 H Pulse Oximetry 96 Oxygen Delivery Method Room Air Oxygen Flow Rate 0 Narrative Exam Narrative: Patient confused sitting breathing and without oxygen in place in her chair anxious with a slightly elevated blood pressure but through the course of the day at each day her blood pressure gets down closer to normal she is asymptomatic. PE are RLA Speech is clear although content is confused Been pulses are symmetrical Lungs have decreased breath sounds throughout chest x-rays reviewed and they were negative Abdomen nontender no hepatosplenomegaly No dependent edema Motor and sensory are symmetrical and strength is 4.5/5 diffusely. Objective Labs Result Diagrams: 11/08/19 06:35 11/08/19 06:35 Assessment & Plan Assessment & Plan narrative: Assessment 1. Acute superimposed over chronic COPD exacerbation secondary to probable with [place] pneumo virus possibly covered 19 as well. Patient is stable at this point in terms of her oxygen requirement and her ability to get up and go to the bathroom with single assist. Her courses been decided in that family wants her to go home with home health PT OT RT and and other assistance. They were not able to get caregivers to come in until we have her covered 19 test back which should be being on today or tomorrow. Anticipate that she could be discharged tomorrow if the test comes back negative Assessment 2 hypertension patient is on 5 mg of lisinopril. Pressure is high in the morning but normalizes more later in the day and she is asymptomatic will stay on same med Assessment 3 anxiety patient having significant issues with anxiety I think that being in the hospital as some component to that the current infectious situation as well and I think so may be some element of owning. She may do better at home but she will definitely need more assistance there. Long-term she will probably need memory care unit. Assessment 4 resolved hypokalemia Assessment 5 a significant dementia with of fairly serous impact. Let Dr. Vishnu dumont manage that I think she will need memory care placement long-term. Assessment 6 disposition issues they fit family members do not want her to go to a nursing home facility for transition. They would like her to be at home but need the [place] in test return before they can initiate and implement those issues I see no way she could be discharged until tomorrow but I would anticipate she probably can go tomorrow get pending the return of her cover test. Quality VTE Deep Vein Thrombosis/Pulmonary Embolism Present on Admission: No
--- NOTE | 2019-11-14 12:21 | PT.IPTN ---
Current Diagnoses Chronic obstructive pulmonary disease with (acute) exacerbation (11/06/19) Physical Therapy Treatment Note M2 PT-IP Current Condition Start: 11/06/19 14:10 Freq: NEEDED Status: Active Protocol: Document 11/06/19 11:31 AB (Rec: 11/06/19 14:24 AB [id number]) Physical Therapy Current Condition Current Condition Evaluation Date 11/06/19 Treatment Diagnosis COPD exac; generalized weakness Onset Date 11/05/2019 Precautions Other Precautions droplet precautions; fall precaution M3 PT-IP Subjective Start: 11/06/19 14:10 Freq: NEEDED Status: Active Protocol: Document 11/14/19 12:08 AW (Rec: 11/14/19 12:21 AW [id number]) Subjective Physical Therapy Visit Type Type Treatment Note Visit Start Time 11:40 Visit Stop Time 12:00 Total Visit Minutes 20 Notes Per CM, Physical Therapy Visit Comments Patient Comments Pt willing to participate with PT Therapy Pain Assessment Pain Present Pain Present Denied Pain M4 PT-IP Mobility and Gait Start: 11/06/19 14:10 Freq: NEEDED Status: Active Protocol: Document 11/14/19 12:08 AW (Rec: 11/14/19 12:21 AW [id number]) PT-Transfer Assessment Sit to and From Stand Sit to and from Stand Contact Guard Assistance,1 Person Assistance,Use of Upper Extremities Equipment Transfer Assistive Device Gait Belt Orthotic/Prosthetic Devices or Brace: No Transfers Transfer Destination Chair Transfer Technique pt ambulated w/o AD Transfer Ability Level of Assist Contact Guard Assistance,Use of Upper Extremities Comments Mobility Comments Pt sitting up in the chair upon PT arrival, stating she is feeling too hot and would like to leave the room. Reoriented pt to her precautions and explained that she would not be able to leave the room. She stood without AD CGA and demonstrated initial unsteadiness from which she was able to recover without assist. She ambulated to the sink to wash her face where she rested her forearms or elbows on the counter at all times due to reported fatigue. She completed hygiene tasks and walked around the room without AD, contacting every available surface (counter, table, foot of bed, wall) as she walked by for support. While walking ~60 feet without AD and with CGA, she experiences two lateral LOB requiring PT assist to recover . She transferred to the window seat for seated exercises and then back to the chair where she was repositioned with chair alarm on for safety, call light and table within reach. Gait Assessment Gait Gait Assistance Required: Contact Guard Assist,1 Person Assist Distance (Feet) 60 Able to Maintain Weight Bearing Status Yes During Gait Assistive Devices Assistive Device None,Gait Belt Orthotic/Prosthetic Devices or Brace: No Gait Deviations General Gait Pattern Antalgic,Decreased Stride Length,Decreased Feet Clearance,Flexed Trunk,Narrow Based Gait Factors Limiting Gait Function Factors Limiting Gait Function Decreased Activity Tolerance, Decreased Strength,Difficulty Following Directions,Poor Balance,Poor Safety Awareness, Respiratory Distress Comments Gait Comments See mobility notes. SpO2 was maintained 88-91% during mobility. PT-Balance Assessment Sitting Balance and Reactions Static Sitting Balance Ability Good Dynamic Sitting Balance Ability Good Standing Balance and Reactions Static Standing Balance Ability Fair Dynamic Standing Balance Ability Poor Device Used none M5 PT-IP Objective Assessments Start: 11/06/19 14:10 Freq: NEEDED Status: Active Protocol: Document 11/06/19 11:31 AB (Rec: 11/06/19 14:24 AB [id number]) Orientation Orientation/Cognition Level of Alertness Confusional State Orientation Name Language Function Ability Hard of Hearing Safety Awareness Decreased Safety Awareness Memory Description Short Term Impaired,[employer] Impaired Gross Range of Motion Lower Extremity ROM Assessment Within Functional Limits Strength Lower Extremity Strength Hip 4-/5 Knee 4-/5 Muscle Tone Muscle Tone WNL No M6 PT-IP Treatment Start: 11/06/19 14:10 Freq: NEEDED Status: Active Protocol: Document 11/14/19 12:08 AW (Rec: 11/14/19 12:21 AW [id number]) Physical Therapy Treatment Education Education Provided Safety Other Treatments Other Treatment Performed Standing balance at sink, ankle pumps, LAQ, seated marching with manual resistance, seated knee flexion/extension. M7 PT-IP Assessment and Plan Start: 11/06/19 14:10 Freq: NEEDED Status: Active Protocol: Document 11/14/19 12:08 AW (Rec: 11/14/19 12:21 AW [id number]) PT Summary Assessment and Plan Potential Rehabilitation Potential Fair Status of Condition at Evaluation Evolving Summary Impairments Strength,Balance,Coordination, Cognition,Bed Mobility, Transfers,Gait,Activity Tolerance Progress Towards Goals Progressing Toward Goals,Slow Progress - Other Assessment Summary Pt requires CGA for all upright mobility. She had two LOB during 60 feet ambulation today without AD, requiring PT assist to recover. Will plan to trial FWW at next visit. Pt would benefit from increased long-term support (up to 24/7 supervision for all mobility) and home health PT at discharge. Goals Bed Mobility Goal Independent Transfer Goal Independent,Front Wheeled Walker Gait Goal Independent,Front Wheel Walker Gait Distance 100 Days to Meet Goals 5 Frequency of Treatment Frequency Of Treatment Once a Day Treatment Plan Physical Therapy Treatment Plan Bed Mobility Training,Transfer Training,Gait Training, Therapeutic Exercise,Balance Retraining,Discharge Planning, Hot or Cold Pack,Neuromuscular Re-ed,Coordination Retraining ,Manual Therapy Other Recommendations and Next Treatment take FWW into room, ambulation Focus LRAD, standing balance, check O2. Recommendations To Nursing Amount of Assist Needed 1 Person Assist Discharge Recommendations PT Discharge Recommendations Home with Assistance,Home with 24/7 Assist,Home Health Other Discharge Recommendations caregiver training, FWW Equipment Needed for Home Before FWW Discharge Transportation Needs at Discharge Private Vehicle
[2019-11-14 16:00] VITALS: BP 151/75; PULSE 102; RESP 20; TEMP 36.9; O2SAT 93
[2019-11-14] MEDS: QUETIAPINE 25 MG TABLET 12.5 MG PO (16:42)
[2019-11-14 16:51] VITALS: O2SAT 93
[2019-11-14] MEDS: ACETAMINOPHEN 325 MG TABLET 650 MG PO (18:45)
[2019-11-14] MEDS: LORazepam 0.5 MG TABLET PO (18:46)
--- NOTE | 2019-11-14 19:13 | PC.NURSE ---
1900- Patient restless and unable to sleep. Medicated per order.
[2019-11-15 00:45] VITALS: BP 146/76; PULSE 78; RESP 16; TEMP 36.8; O2SAT 93
[2019-11-15 08:15] VITALS: O2SAT 96
--- NOTE | 2019-11-15 08:15 | CM.DPC ---
Addendum entered by Deisy Hart R.N. 11/15/19 15:21: Spoke to Dr. Hong. He is planning on discharging patient later this pm. Stated that he would be in at approximately 5:30 pm. Updated son, Austin. Let him know that it is unknown as to when results will be in regarding COVID-19, could be several days. Stated that she at this point is deemed medically stable, per provider, and nursing stated that patient is ambulating, and wanting to go home. Son stated that he is having difficulty finding caregivers, since they take care of other individuals, and are concerned that they can give this to others. Asked son what he would do if patient were positive, as well, and son did not have any idea. Asked him if he could have himself and family members take turns staying with patient, and son mentioned, he does not think that this would work out. Stated that Dr. Hong may be able to call him this pm at discharge, with his concerns, but let him know that patient is to be discharged home today. Patient's son has been given resources for patient's care as well. Addendum entered by Deisy Hart R.N. 11/15/19 15:05: Left a message with Dr. Hong to call this case loader operator back regarding discharging patient. Addendum entered by Deisy Hart R.N. 11/15/19 12:30: Called Dr. Hong at his office, for it is noted that family is not wanting patient to come home until results are in, since it is difficult to obtain caregivers. Asked Dr. Hong if he could still go ahead and place discharge order, but he stated that he wishes to follow up with lab results before doing so. Will follow up later today. Original Note: DCP Cont: Spoke to Dr. Hong this morning. Had him sign another face to face for home health. Updated him that [facility] attempted to get her insurance to authorize stay, but rejected, and son is not able to pay privately. At this point, home health is the plan, and COVID-19 results are not yet in[address] Dr. Hong feels that patient should be able to go home, regardless of awaiting test results. Asked him to call son to reassure him, and he stated that he will. P: Plan is for home with [facility]. They have referral, for all disciplines except ST. Will await Dr. Hong calling son, and discharge. Deisy Hart RN/Sign Erector And Repairer
[2019-11-15] MEDS: lisinopriL 5 MG TABLET PO (08:17)
[2019-11-15] MEDS: predniSONE 20 MG TABLET 40 MG PO (08:17)
[2019-11-15 08:40] VITALS: BP 164/79; PULSE 66; RESP 19; TEMP 36.6; O2SAT 96
--- NOTE | 2019-11-15 10:52 | PC.NURSE ---
Called to [facility] [phone] to request information regarding COVID 19 results. The product representative stated that they received the swab in [place], [place] on 11-14-19. She states that the results are usually ready in 2-4 days from receiving the specimen. She states that there is a back log of specimens at this time which could potentially prolong result time, although 2-4 days has been average. She adds that positive results are phoned to the ordering provider and negative results are dispatched with the same turnaround time but without a call. Updated assistant media planner.
--- NOTE | 2019-11-15 12:23 | PT.IPTN ---
Current Diagnoses Chronic obstructive pulmonary disease with (acute) exacerbation (11/06/19) Physical Therapy Treatment Note M2 PT-IP Current Condition Start: 11/06/19 14:10 Freq: NEEDED Status: Active Protocol: Document 11/06/19 11:31 AB (Rec: 11/06/19 14:24 AB [id number]) Physical Therapy Current Condition Current Condition Evaluation Date 11/06/19 Treatment Diagnosis COPD exac; generalized weakness Onset Date 11/05/2019 Precautions Other Precautions droplet precautions; fall precaution M3 PT-IP Subjective Start: 11/06/19 14:10 Freq: NEEDED Status: Active Protocol: Document 11/15/19 12:07 AW (Rec: 11/15/19 12:23 AW [id number]) Subjective Physical Therapy Visit Type Type Treatment Note Visit Start Time 11:38 Visit Stop Time 12:03 Total Visit Minutes 25 Notes Pending COVID-19 test results. Swabbed 11/10/19. Number of LAB INTERN Visits 0 Physical Therapy Visit Comments Patient Comments I feel cold and shaky. Therapy Pain Assessment Pain Present Pain Present Denied Pain M4 PT-IP Mobility and Gait Start: 11/06/19 14:10 Freq: NEEDED Status: Active Protocol: Document 11/15/19 12:07 AW (Rec: 11/15/19 12:23 AW [id number]) PT-Transfer Assessment Sit to and From Stand Sit to and from Stand Standby Assistance,1 Person Assistance,Use of Upper Extremities Equipment Transfer Assistive Device Gait Belt Orthotic/Prosthetic Devices or Brace: No Transfers Transfer Destination Chair Transfer Technique pt ambulated w/o AD Transfer Ability Level of Assist Contact Guard Assistance,Use of Upper Extremities Comments Mobility Comments Pt sitting up in chair, stating she is feeling cold and shaky. SpO2 at rest was 93 % on room air. She completed sit to stand SBA without AD and ambulated around the room twice (60 feet) CGA with no evident LOB before stopping at the sink to wash her face. She was able to stand bent over at the sink without UE support ~30 seconds and then rested her elbows on the counter to finish washing for a total of 3 minutes. Pt transferred back to the chair CGA where she was positioned with call light and all needs within reach, chair alarm armed for safety. Gait Assessment Gait Gait Assistance Required: Contact Guard Assist,1 Person Assist Distance (Feet) 60 Able to Maintain Weight Bearing Status Yes During Gait Assistive Devices Assistive Device None,Gait Belt Orthotic/Prosthetic Devices or Brace: No Gait Deviations General Gait Pattern Antalgic,Decreased Stride Length,Decreased Feet Clearance,Flexed Trunk,Narrow Based Gait Factors Limiting Gait Function Factors Limiting Gait Function Decreased Activity Tolerance, Decreased Strength,Difficulty Following Directions,Poor Balance,Poor Safety Awareness, Respiratory Distress Comments Gait Comments See mobility notes. SpO2 maintained 90-93% during mobility with pt reporting mild SOB and fatigue. Functional Assessments Functional Tests 5 Times Sit to Stand 24 seconds Other Functional Tests Performed FTSTS: 24 seconds with use of UE to push off and 2 trials requiring more than one attempt to stand. M5 PT-IP Objective Assessments Start: 11/06/19 14:10 Freq: NEEDED Status: Active Protocol: Document 11/06/19 11:31 AB (Rec: 11/06/19 14:24 AB [id number]) Orientation Orientation/Cognition Level of Alertness Confusional State Orientation Name Language Function Ability Hard of Hearing Safety Awareness Decreased Safety Awareness Memory Description Short Term Impaired,Longterm Impaired Gross Range of Motion Lower Extremity ROM Assessment Within Functional Limits Strength Lower Extremity Strength Hip 4-/5 Knee 4-/5 Muscle Tone Muscle Tone WNL No M6 PT-IP Treatment Start: 11/06/19 14:10 Freq: NEEDED Status: Active Protocol: Document 11/15/19 12:07 AW (Rec: 11/15/19 12:23 AW [id number]) Physical Therapy Treatment Other Treatments Other Treatment Performed Ankle pumps, straight leg raise, seated marching, hip abduction, hip adduction with manual resistance 10 reps each M7 PT-IP Assessment and Plan Start: 11/06/19 14:10 Freq: NEEDED Status: Active Protocol: Document 11/15/19 12:07 AW (Rec: 11/15/19 12:23 AW [id number]) PT Summary Assessment and Plan Potential Rehabilitation Potential Good Status of Condition at Evaluation Stable Summary Impairments Strength,Balance,Coordination, Cognition,Bed Mobility, Transfers,Gait,Activity Tolerance Progress Towards Goals Progressing Toward Goals Assessment Summary Pt continued to require CGA for all upright mobility but with no LOB during ambulation today. She tolerated ther ex with manual resistance well, maintaining SpO2 >90% at all times.. Five Time Sit time of 24 seconds indicates increased risk of falls. Pt's cognitive deficits make gait with FWW challenging. She will likely do better overall without AD. Pt would benefit from increased care home support ( up to 24/ supervision for all mobility) and home health PT at discharge. Goals Bed Mobility Goal Independent Transfer Goal Independent,Front Wheeled Walker Gait Goal Independent,Front Wheel Walker Gait Distance 100 Days to Meet Goals 4 Frequency of Treatment Frequency Of Treatment Once a Day Treatment Plan Physical Therapy Treatment Plan Bed Mobility Training,Transfer Training,Gait Training, Therapeutic Exercise,Balance Retraining,Discharge Planning, Hot or Cold Pack,Neuromuscular Re-ed,Coordination Retraining ,Manual Therapy Other Recommendations and Next Treatment ambulation without AD, Focus standing balance, continue ther ex for LE strength, monitor SpO2 Recommendations To Nursing Amount of Assist Needed 1 Person Assist Discharge Recommendations PT Discharge Recommendations Home with Assistance,Home with 24/ Assist,Home Health Other Discharge Recommendations caregiver training, FWW Equipment Needed for Home Before FWW - ask family for Discharge preference
[2019-11-15 15:00] VITALS: O2SAT 96
[2019-11-15 15:41] VITALS: BP 166/71; PULSE 92; RESP 23; TEMP 37.3; O2SAT 96
[2019-11-15] MEDS: QUETIAPINE 25 MG TABLET 12.5 MG PO (17:09)
--- NOTE | 2019-11-15 18:17 | P.DS_ITS ---
History of Present Illness History of Present Illness Chief complaint: Respiratory Distress Narrative: Patient is a significantly demented 84-year-old female who has been reluctant to consider medical care over the last 2 years. The last time I saw her was approximately 2 or 3 months ago when I did a home visit and she was reluctant to leave the house. Really had a lot of paranoia around everybody trying to get her out of her house. Basically at the time her son was splitting time with her daughter in spending time with her to try to keep her in the house. The goal was to keep her there. She has been doing well. Apparently she has had a flight steward who had a a family member who was recently coming back from [place]. She had been tested twice for the prado virus both of which time she was negative. Caretakers never been sick and not had any issues. Apparently Sue over the last 7 days is progressively got increasing cough. No fever. Generally increasing weakness and has had more and more difficulty breathing. Having difficulty get up and moving around. Has been had minimal p.o. intake. Has not had any fevers or chills. Son has had increasing issues with dealing with her and started to worry that she was going to have more more problems. So she was brought in today. No one else in the family has been sick although the flight steward is gotten sick since Sue he has gotten sick. Patient has had a longstanding history of smoking. And has had issues with COPD. Patient has had a cough but son is not sure if it has been productive. Patient otherwise is a very poor historian. She has not had any nausea or vomiting. She has not been complaining of any pain to her son. No urinary changes or bowel changes. Past medical history is significant for hypertension. Dementia. Refused all treatment. Past Surgical history is noncontributory and I am unable to obtain tonight. Social history. Lifelong smoker. Greater than 60 pack year history. . Retired. Lives alone with excellent family support. No alcohol. 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 Patient was brought to the hospital and initially was on oxygen which was at a greater level than what she had previously been on which was none. She was placed on up to 4 L over the 1st 48 hours but at that point seemed to hold steady and then was improving. Again she did not have a bacterial pneumonia. She was not placed on antibiotics. Her sepsis labs were all within normal limits. Humanmetapneumovirus. She slowly improved over the course of the next few days and was off oxygen and back to her baseline at the time of discharge. No other major issues. While I believe that she was secondary to her COPD and wondered about her possibility that she was hypoxic on a regular basis she has been doing well. She will be weaned down to 20 mg of prednisone and then weaned off over the course of the next month. Dehydration. Patient was admitted and found to be dehydrated. Over the course of the next 48 hours she was gently hydrated and then on day 3 she began having improved p.o. intake was found to be euvolemic and IV hydration was discontinued. Patient was stable throughout the course of the rest of her admission. Hypertension. Patient was found to be hypertensive. She was started on 10 mg of lisinopril. It was decreased to 5 due to some hypo tension. She was mildly to moderately hypertensive at the time of discharge will need to follow. Will follow as an outpatient. Will see how she does when she gets home. Infectious disease. Found to be viral. Identified virus. Prado virus was tested but was not present at the time of discharge. Hypokalemia. Patient was found on day 2 to be hypokalemic oral replacement was done and no further issue was followed. She was not needed to replaced at any other time. Weakness. Patient was moderately weak and having 2 patient is cyst during her time. Due to the length of her time here with physical therapy she was becoming quite independent. No further follow-up was needed. She probably is at [facility] at this time. Nutritional deficiency. Patient was followed here in the hospital. Will be a discussion have an outpatient with family. I do believe it will be difficult. They do the best they can and I think it is probably a combination her dementia and other issues Dementia. Severe. In stage. Will follow. Disposition. Patient was originally slated to be going to the half-way. Needed a prado virus test prior. Patient was tested and as of 5 days later we still have no result. Due to that patient was refused at the half-way along with the fact that she was getting better. We then developed a problem at home where caretakers are not interested in caring for the patient if they did know what her prado virus status is. Still not a great situation in we do not know that answer family will have to fill in until answer returns. Status at Discharge Cognitive/behavioral status at discharge: at baseline, confused Functional status at discharge: independent ambulation Overall status at discharge: patient is back to baseline Time Spent with Patient Time spent: Greater than 30 minutes Exam Vital Signs (past 8 hours): - 11/15/19 15:00 11/15/19 15:41 Temperature 99.2 F Pulse Rate 92 H Respiratory Rate 23 Blood Pressure 166/71 H Pulse Oximetry 96 96 Oxygen Delivery Method Room Air Oxygen Flow Rate 0 Narrative Exam Narrative: Alert female confused but no other change. HEENT exam unremarkable neck is supple without adenopathy lungs with continued diffuse rhonchi. Patient breathing comfortably but is short of breath just moving minimally. Heart regular rate and rhythm abdomen is benign extremities are normal Objective Labs Result Diagrams: 11/08/19 06:35 11/08/19 06:35 Discharge Plan Discharge Plan Patient Disposition: Home Discharge orders & Medications Prescriptions: New lisinopril 5 mg Tablet 5 mg PO DAILY Qty: 30 RF: 2 prednisone 5 mg tablet 20 mg PO DAILY Qty: 100 RF: 0 Continued quetiapine [Seroquel] 25 mg Tablet 12.5 mg PO QPM RF: 0 Follow up/Referrals: Marbella Arevalo ARNP [Primary Care Provider] - Nacho Hong MD [Physician] - 2 Weeks Discharge Health Status Care Plan Goals: home Multidrug resistant organism: No MDRO Diet/Activity/Treatments Diet: Diet as Tolerated Activity: as tolerated Skin/Wound/Dressing Care Report to your healthcare provider any signs of infection, such as:: chills, fever, night sweats and increased pain Discharge Data Primary Care Provider: Marbella Arevalo VTE Deep Vein Thrombosis/Pulmonary Embolism Present on Admission: No
--- NOTE | 2019-11-16 08:22 | CM.DPC ---
DCP Cont: Patient discharged home last pm. Called Marybel at [facility] and gave her update. She asked if her COVID-19 results were yet in, and let her know that they are still pending. Let her know that family should be contacted with results, but will follow up this pm to see if results are in and update Marybel. Faxed over face to face, home health orders, and discharge summary. In orders, included nursing, P.T, O.T, HEART NURSE, and bath aide. Marybel stated that they are planning on seeing patient tomorrow. P: Patient was discharged home yesterday. Faxed over orders to [facility], and Marybel was updated. Deisy Hart RN/Paper Gluing Operator
[2019-11-19 04:07] LABS: COVID19 Sendout Not Detected (Not Detected)
== END 2019-11-15 19:15 | disposition home health service (06) | DRG 190 ==
LOC: ED 14:54 → AC 11-06 10:16 → ICU 11-12 05:23
PROVIDERS: Admitting Provider Family Medicine; Emergency Provider Emergency Medicine; PCP Registered Nurse Women's Health Care, Ambulatory; Referring Provider Emergency Medicine; Visit Provider Family Medicine
DX: J44.1 Chronic obstructive pulmonary disease with (acute) exacerbation (principal); J96.01 Acute respiratory failure with hypoxia; E43 Unspecified severe protein-calorie malnutrition; Z68.1 Body mass index [BMI] 19.9 or less, adult; B97.81 Human metapneumovirus as the cause of diseases classified elsewhere; I10 Essential (primary) hypertension; F03.90 Unspecified dementia, unspecified severity, without behavioral disturbance, psychotic disturbance, mood disturbance, and anxiety; E87.6 Hypokalemia; E86.0 Dehydration; J06.9 Acute upper respiratory infection, unspecified; F17.210 Nicotine dependence, cigarettes, uncomplicated; Z66 Do not resuscitate
CPT/HCPCS: 36415; 71045; 71046; 80048; 80053; 81003; 81015; 83605; 83690; 84145; 85025; 85610; 85730; 87040; 87633; 87635; 93005; 94640; 94760; 96360; 96361; 97110; 97112; 97116; 97162; 97165; 97530; 99285; G0378; J2920; J7613